=== PATIENT | female | born 1935 | race Caucasian/White ===

== ENCOUNTER 2017-02-04 12:51 | Inpatient (IN) | payer MEDICARE ==
[~2017-02-04] VITALS: Ht 165.1 cm; Wt 59.6 kg
[2017-02-04] MEDS ORDERED: LOTE5DRO2 EACHEYE (14:22)
[2017-02-04] MEDS ORDERED: LEVO137T3 PO (14:22)
[2017-02-04] MEDS ORDERED: BUPR300T4 PO (14:22)
[2017-02-04] MEDS ORDERED: METF500T PO (14:22)
[2017-02-04] MEDS ORDERED: CHOL10003 PO (14:22)
[2017-02-04] MEDS ORDERED: TRAZ50TA15 PO (14:22)
[2017-02-04] MEDS ORDERED: PANT40TA5 PO (14:22)
[2017-02-04] MEDS ORDERED: HALO2TAB PO (14:22)
[2017-02-04] MEDS ORDERED: OLME40TA12 PO (14:22)
[2017-02-04] MEDS ORDERED: DULO60CA6 PO (14:22)
[2017-02-04] MEDS ORDERED: ONDA4TAB10 PO (14:22)
[2017-02-04] MEDS ORDERED: ACETAMINOPHEN 325 MG TABLET PO PRN (18:15)
[2017-02-04] MEDS ORDERED: MAG HYDROX/AL HYDROX/SIMETH 30 ML ORAL.SUSP PO PRN (18:15)
[2017-02-04] MEDS ORDERED: MAGNESIUM HYDROXIDE 2,400 MG/30 ML ORAL.SUSP. PO PRN (18:15)
[2017-02-04] MEDS ORDERED: METHYL SALICYLATE/MENTHOL TOPICAL OINTMENT 29GM TUBE. TP PRN (18:15)
[2017-02-04 18:45] VITALS: BP 170/92
[2017-02-04] MEDS ORDERED: ONDANSETRON ODT 4 MG TAB.RAPDIS PO PRN (18:45)
--- NOTE | 2017-02-04 20:39 | PDOC ---
Exam Jt Demential Exam: Jt Note: Please also refer to the separate dictated note~for this date of service dictated separately.~Patient seen individually. Discussed the patient with Nursing staff reviewed the chart.~Reviewed interim history and current functioning. Reviewed vital signs,~Labs/ Radiology~and current medications noted below. Continue current treatment with the changes noted in the dictated addendum note Assessment: Vital Signs: Vital Signs Date Time Temp Pulse Resp B/P (MAP) Pulse Ox O2 Delivery O2 Flow Rate FiO2 02/04/17 18:45 97.1 117 22 170/92 (118) Room Air 96.0 Labs: Laboratory Tests Test 02/04/17 19:34 Glucose (Fingerstick) 199 mg/dL (70-99) H Current Medications: Meds: Current Medications Acetaminophen (Tylenol) 650 mg PRN Q6HRS PRN PO PAIN / TEMP; Start 02/04/17 at 18:15 Multi-Ingredient Ointment (Analgesic [place]) 1 camilo PRN QID PRN TP MUSCLE PAIN; Start 02/04/17 at 18:15 Al Hydroxide/Mg Hydroxide (Mylanta Plus Xs) 15 ml PRN AFTMEALHC PRN PO DYSPEPSIA; Start 02/04/17 at 18:15 Magnesium Hydroxide (Milk Of Magnesia) 2,400 mg PRN QHS PRN PO CONSTIPATION; Start 02/04/17 at 18:15 Bupropion HCl (Wellbutrin Xl) 300 mg DAILY PO ; Start 02/05/17 at 09:00 Vitamin D (Vitamin D3) 1,000 unit DAILY PO ; Start 02/05/17 at 09:00 Duloxetine HCl (Cymbalta) 60 mg DAILY PO ; Start 02/05/17 at 09:00 Haloperidol (Haldol) 1 mg PRN TID PRN PO ANXIETY / AGITATION; Start 02/04/17 at 18:45 Levothyroxine Sodium (Synthroid) 137 mcg DAILYAC PO ; Start 02/05/17 at 07:30 Loteprednol Etabonate (Lotemax) 1 drop DAILY OU ; Start 02/05/17 at 09:00 Metformin HCl (Glucophage) 500 mg DAILYWBKFT PO ; Start 02/05/17 at 08:00 Ondansetron HCl (Zofran Odt) 4 mg PRN Q4HRS PRN PO NAUSEA/VOMITING; Start 02/04 at 18:45 Pantoprazole Sodium (Protonix) 40 mg DAILY PO ; Start 02/05/17 at 09:00 Trazodone HCl (Desyrel) 25 mg HS PO ; Start 02/04/17 at 21:00 Losartan Potassium (Cozaar) 100 mg DAILY PO ; Start 02/05/17 at 09:00 Info (FLU VACCINE per PROTOCOL) 1 ea PRN 1X PRN MC PER PROTOCOL; Start at 19:00; Status UNV Pneumococcal Polyvalent Vaccine (Pneumovax 23) 0.5 ml ONCE ONCE VAX IM ; Start 02/05/17 at 09:00; Stop 02/05/17 at 09:01 Active Scripts Active Reported Zofran Odt (Ondansetron) 4 Mg Tab.rapdis 4 Mg PO PRN Q4HRS PRN Haloperidol 2 Mg Tablet 0.5 Tab PO PRN TID PRN Glucophage (Metformin Hcl) 500 Mg Tablet 500 Mg PO DAILY Trazodone Hcl 50 Mg Tablet 25 Mg PO HS Pantoprazole Sodium 40 Mg Tablet.dr 40 Mg PO DAILY Benicar (Olmesartan Medoxomil) 40 Mg Tablet 40 Mg PO DAILY Lotemax (Loteprednol Etabonate) 5 Ml Drops.susp 1 Drop EACHEYE DAILY Levothyroxine Sodium 137 Mcg Tablet 137 Mcg PO DAILYAC Cymbalta (Duloxetine Hcl) 60 Mg Capsule.dr 60 Mg PO DAILY Vitamin D3 (Cholecalciferol (Vitamin D3)) 1,000 Unit Tablet 1,000 Unit PO DAILY Bupropion Xl (Bupropion Hcl) 300 Mg Tab.er.24h 300 Mg PO DAILY VALERIA SHEPHERD MD Feb 04, 2017 20:39
[2017-02-04] MEDS: traZODone 50 MG TABLET. PO SCH (21:00)
[2017-02-05] MEDS: LEVOTHYROXINE 137 MCG TABLET PO SCH (06:02)
[2017-02-05 06:13] VITALS: BP 149/73
[2017-02-05] MEDS ORDERED: LEVOTHYROXINE 137 MCG TABLET PO SCH (07:30)
[2017-02-05] MEDS: PANTOPRAZOLE 40 MG TABLET. PO SCH (09:00)
[2017-02-05] MEDS: LOTEPREDNOL ETAB 0.5% OPHTH SUSPENSION 5ML BOTTLE. OU SCH (09:00)
[2017-02-05] MEDS ORDERED: FLU VACC QS2017-18 (36MOS+)/PF 0.5 ML SYRINGE. VAX IM ONE (09:00)
[2017-02-05] MEDS: CHOLECALCIFEROL (VITAMIN D3) 1,000 UNIT TABLET PO SCH (09:00)
[2017-02-05] MEDS ORDERED: PNEUMOC CONJ VACC 23-VALENT 0.5 ML VIAL. VAX IM ONE (09:00)
[2017-02-05] MEDS: HALOPERIDOL 1 MG TABLET PO PRN (10:11)
--- NOTE | 2017-02-05 10:22 | HP ---
ADMIT DATE: 02/04/2017 PSYCHIATRIC ADMISSION HISTORY AND EVALUATION This is a late entry for date of service 02/04/2017, covers elements not covered in my initial note of 02/04/2017. IDENTIFYING DATA: The patient is an 81-year-old female referred to us from [facility] where she presented from home with exacerbation of her diverticulitis, nausea, vomiting. While at [facility], she was found to be extremely paranoid, delusional, suspicious, refusing medications, refusing cares. Symptoms had been worsening at home for 2-3 weeks. It was felt that her physician at [facility] that she could not return home. She needed inpatient psychiatric stabilization for her confusion, psychosis and appropriate placement thus resulting in this referral. CHIEF COMPLAINT: "I just came here 20 minutes ago." This is accurate. I met with the patient shortly after she arrived in the unit, but other than that, she is quite confused, unaware of the year or where she is or the circumstances prompting admission. HISTORY OF PRESENT ILLNESS: Reportedly, the patient has been living alone at home by herself, has had increasing memory deficits, confusion, which she minimizes and worsening psychosis, paranoia. She has had sleep and appetite changes. No active suicidal or homicidal ideation. No clear history of bipolar disorder. UA was positive at [facility] on 01/31/2017. She was treated with IV Cipro, Flagyl additionally for diverticulitis. PAST PSYCHIATRIC HISTORY: Positive for progressive memory deficits, delusion, depression. PAST MEDICAL HISTORY: Diabetes mellitus, hypertension, hypothyroidism, history of CA breast on the left, history of bladder cancer, psoriasis, diverticulitis. CODE STATUS: Full. ALLERGIES: OXYCODONE, PERCOCET, PENICILLIN. ACCU-CHEKS: A.C. and at bedtime. DIET: Regular. Ambulates up with assistance. CURRENT PSYCHOTROPICS: Wellbutrin-XL 300 mg a day, Cymbalta 60 mg a day, trazodone 25 mg at bedtime. She received Haldol at [facility] for worsening psychosis. FAMILY HISTORY: Noncontributory. SOCIAL HISTORY: No alcohol, drug abuse, physical, sexual or elder abuse. She is not known to be a perpetrator. Her three daughters are her DPOA and per the [facility] paperwork, two of them have to concur, and all three have concurred for this hospitalization. MENTAL STATUS EXAM: The patient was seen individually in her room shortly after she was admitted. She is oriented to herself, situation, unaware of the year, where she was, reasons for admission. Speech is coherent, abstraction fair, computation impaired, language function intact. Short term memory is impaired. She is somewhat paranoid, suspicious, depressed. No active suicidal or homicidal ideation. Attention span short. Language function intact. LABORATORY DATA: Reviewed. REACTION TO HOSPITALIZATION: The patient accepting of this, has supportive family. IMPRESSION: Major neurocognitive disorder, Alzheimer, vascular with depression, delusion, behavioral disturbance; anxiety disorder, unspecified; impulse control disorder, unspecified. Rest of diagnoses as above. PLAN: Admit to the geropsychiatry unit at [facility]. I will see the patient daily individually from a psychiatric standpoint, medical followup per Dr. Alexis/Dr. Nava. Continue current psychotropics for now, observe baseline, then adjust as clinically indicated. I have carefully reviewed the drug interactions, risk-benefit ratio, favors no further change at this time. MAN Angelo SHEPHERD MD DR: MARSHALL/silvestre JOB#: [id number] / [id number]
[2017-02-05 11:36] LABS: THYROID STIM HORMONE (TSH) 2.991 uIU/mL (0.358-3.740)
[2017-02-05] MEDS: DULoxetine HCL 60 MG CAPSULE.DR PO SCH (12:21)
[2017-02-05] MEDS: metFORMIN 500 MG TABLET PO SCH (12:21)
[2017-02-05] MEDS: buPROPion XL 300 MG TAB.ER.24H. PO SCH (12:21)
[2017-02-05] MEDS: LOSARTAN 50 MG TABLET. PO SCH (12:32)
[2017-02-05 13:09] LABS: T3 TOTAL 58 ng/dL (71-180); THYROXINE 9.6 ug/dL (4.5-12.0)
[2017-02-05 15:49] VITALS: BP 143/76
[2017-02-05] MEDS ORDERED: Influenza vaccine per PROTOCOL. MC PRN (19:00)
[2017-02-05] MEDS: traZODone 50 MG TABLET. PO SCH (20:44)
--- NOTE | 2017-02-05 22:58 | PDOC ---
Exam Jt Demential Exam: Jt Note: Please also refer to the separate dictated note~for this date of service dictated separately.~Patient seen individually. Discussed the patient with Nursing staff reviewed the chart.~Reviewed interim history and current functioning. Reviewed vital signs,~Labs/ Radiology~and current medications noted below. Continue current treatment with the changes noted in the dictated addendum note Assessment: Vital Signs: Vital Signs Date Time Temp Pulse Resp B/P (MAP) Pulse Ox O2 Delivery O2 Flow Rate FiO2 02/05/17 15:49 97.5 80 18 143/76 (98) 95 02/04/17 18:45 Room Air 96.0 I&O Intake and Output 02/06/17 07:00 Intake Total 1080 ml Balance 1080 ml Intake Oral 1080 ml Labs: Laboratory Tests Test 02/05/17 07:18 02/05/17 11:28 02/05/17 16:36 02/05/17 19:17 Glucose (Fingerstick) 160 mg/dL (70-99) H 250 mg/dL (70-99) H 170 mg/dL (70-99) H 176 mg/dL (70-99) H Current Medications: Meds: Current Medications Acetaminophen (Tylenol) 650 mg PRN Q6HRS PRN PO PAIN / TEMP; Start 02/04/17 at 18:15 Multi-Ingredient Ointment (Analgesic [place]) 1 camilo PRN QID PRN TP MUSCLE PAIN; Start 02/04/17 at 18:15 Al Hydroxide/Mg Hydroxide (Mylanta Plus Xs) 15 ml PRN AFTMEALHC PRN PO DYSPEPSIA; Start 02/04/17 at 18:15 Magnesium Hydroxide (Milk Of Magnesia) 2,400 mg PRN QHS PRN PO CONSTIPATION; Start 02/04/17 at 18:15 Bupropion HCl (Wellbutrin Xl) 300 mg DAILY PO Last administered on 02/05/17 12 :21; Start 02/05/17 at 09:00 Vitamin D (Vitamin D3) 1,000 unit DAILY PO ; Start 02/05/17 at 09:00 Duloxetine HCl (Cymbalta) 60 mg DAILY PO Last administered on 02/05/17t 12:21; Start 02/05/17 at 09:00 Haloperidol (Haldol) 1 mg PRN TID PRN PO ANXIETY / AGITATION Last administered on 02/05/17 10:11; Start 02/04/17 at 18:45 Levothyroxine Sodium (Synthroid) 137 mcg DAILYAC PO ; Start 02/05/17 at 07:30; Stop 02/05/17 at 07:30; Status DC Loteprednol Etabonate (Lotemax) 1 drop DAILY OU ; Start 02/05/17 at 09:00 Metformin HCl (Glucophage) 500 mg DAILYWBKFT PO Last administered on 02/05/17 12:21; Start 02/05/17 at 08:00 Ondansetron HCl (Zofran Odt) 4 mg PRN Q4HRS PRN PO NAUSEA/VOMITING; Start 02/04 at 18:45 Pantoprazole Sodium (Protonix) 40 mg DAILY PO ; Start 02/05/17 at 09:00 Trazodone HCl (Desyrel) 25 mg HS PO Last administered on 02/05/17 20:44; Start 02/04/17 at 21:00 Losartan Potassium (Cozaar) 100 mg DAILY PO Last administered on 02/05/17 12: 32; Start 02/05/17 at 09:00 Info (FLU VACCINE per PROTOCOL) 1 ea PRN 1X PRN MC PER PROTOCOL; Start at 19:00; Status UNV Pneumococcal Polyvalent Vaccine (Pneumovax 23) 0.5 ml ONCE ONCE VAX IM Last administered on 02/05/17 15:36; Start 02/05/17 at 09:00; Stop 02/05/17 at 09:01 ; Status DC Influenza Virus Vaccine Quadrival (Fluarix Quad 7501-5510 Syringe) 0.5 ml ONCE ONCE VAX IM Last administered on 02/05/17 15:29; Start 02/05/17 at 09:00; Stop 02/05/17 at 09:01; Status DC Levothyroxine Sodium (Synthroid) 137 mcg DAILY07 PO Last administered on 06:02; Start 02/05/17 at 07:00 Active Scripts Active Reported Zofran Odt (Ondansetron) 4 Mg Tab.rapdis 4 Mg PO PRN Q4HRS PRN Haloperidol 2 Mg Tablet 0.5 Tab PO PRN TID PRN Glucophage (Metformin Hcl) 500 Mg Tablet 500 Mg PO DAILY Trazodone Hcl 50 Mg Tablet 25 Mg PO HS Pantoprazole Sodium 40 Mg Tablet.dr 40 Mg PO DAILY Benicar (Olmesartan Medoxomil) 40 Mg Tablet 40 Mg PO DAILY Lotemax (Loteprednol Etabonate) 5 Ml Drops.susp 1 Drop EACHEYE DAILY Levothyroxine Sodium 137 Mcg Tablet 137 Mcg PO DAILYAC Cymbalta (Duloxetine Hcl) 60 Mg Capsule.dr 60 Mg PO DAILY Vitamin D3 (Cholecalciferol (Vitamin D3)) 1,000 Unit Tablet 1,000 Unit PO DAILY Bupropion Xl (Bupropion Hcl) 300 Mg Tab.er.24h 300 Mg PO DAILY Diagnosis: Problems: (1) Anxiety disorder (2) Dementia, vascular, with delusions (3) Dementia, vascular, with depression (4) Dementia in Alzheimer's disease with depression (5) Dementia in Alzheimer's disease with delusions (6) Impulse control disorder VALERIA SHEPHERD MD Feb 05, 2017 22:58
[2017-02-06 02:06] LABS: HEMOGLOBIN A1C 6.5 % (4.8-5.6)
[2017-02-06 05:53] VITALS: BP 175/78
[2017-02-06] MEDS: LEVOTHYROXINE 137 MCG TABLET PO SCH (06:11)
[2017-02-06 08:13] LABS: BASO # 0.1 x10^3/uL (0.0-0.2); BASO % 1 % (0-3); EOS # 0.2 x10^3/uL (0.0-0.7); EOS % 2 % (0-3); HEMATOCRIT 30.4 % (36.0-47.0); HEMOGLOBIN 10.4 g/dL (12.0-15.5); LYMPH # 0.7 x10^3/uL (1.0-4.8); LYMPH % 8 % (24-48); MEAN CORPUSCULAR HEMOGLOBIN 31 pg (25-35); MEAN CORPUSCULAR HGB CONC 34 g/dL (31-37); MEAN CORPUSCULAR VOLUME 91 fL (79-100); MONO # 0.6 x10^3/uL (0.0-1.1); MONO % 6 % (0-9); NEUT # 7.3 x10^3uL (1.8-7.7); NEUT % 83 % (31-73); PLATELET COUNT 595 x10^3/uL (140-400); RED BLOOD COUNT 3.36 x10^6/uL (3.50-5.40); RED CELL DISTRIBUTION WIDTH 15.8 % (11.5-14.5); WHITE BLOOD COUNT 8.9 x10^3/uL (4.0-11.0)
[2017-02-06 08:26] LABS: ALBUMIN 3.7 g/dL (3.4-5.0); ALBUMIN/GLOBULIN RATIO 1.2 (1.0-1.7); CALCIUM 9.2 mg/dL (8.5-10.1); CREATININE 1.4 mg/dL (0.6-1.0); GFR 36.1; POTASSIUM 3.8 mmol/L (3.5-5.1); TOTAL BILIRUBIN 0.3 mg/dL (0.2-1.0); TOTAL PROTEIN 6.9 g/dL (6.4-8.2)
[2017-02-06] MEDS: metFORMIN 500 MG TABLET PO SCH (08:28)
[2017-02-06] MEDS: LOTEPREDNOL ETAB 0.5% OPHTH SUSPENSION 5ML BOTTLE. OU SCH (08:29)
[2017-02-06] MEDS: buPROPion XL 300 MG TAB.ER.24H. PO SCH (08:30)
[2017-02-06] MEDS: PANTOPRAZOLE 40 MG TABLET. PO SCH (08:30)
[2017-02-06] MEDS: DULoxetine HCL 60 MG CAPSULE.DR PO SCH (08:30)
[2017-02-06] MEDS: LOSARTAN 50 MG TABLET. PO SCH (08:30)
[2017-02-06] MEDS: CHOLECALCIFEROL (VITAMIN D3) 1,000 UNIT TABLET PO SCH (08:30)
--- NOTE | 2017-02-06 08:50 | CONS ---
DATE OF CONSULTATION: 02/05/2017 REASON FOR CONSULTATION: Medical management. HISTORY OF PRESENT ILLNESS: This is an 81-year-old female patient who was referred from [facility], where she was evaluated for increasing confusion, poor memory and inability to take care of herself at home and from there she was [facility] as she is psychotic, delusional, refusing medication, refusing care and on arrival last night she refused baseline EKG and she was exit seeking, wanting to leave and stated that she is being held captive here, took long time to convince her to allow the laboratory sample carrier to draw her labs and she is here basically for inpatient psychiatric stabilization. On questioning her, she stated that she used to live alone, takes care of herself. She is and she was here to play for volleyball. PAST MEDICAL HISTORY: Significant for hypertension, hypercholesterolemia, gastroesophageal reflux disease, type 2 diabetes as well as hypothyroidism. She is a former smoker. She was admitted with depression, encephalopathy, delusion, nausea, vomiting and hyponatremia. PAST SURGICAL HISTORY: Unremarkable. FAMILY HISTORY: Unremarkable and noncontributory. SOCIAL HISTORY: She is approximately 4 years ago. 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 She has 3 daughters. She stated that she has sisters who are also nurses. She is a former smoker, quit years ago. She does not drink alcohol or use any recreational drugs. REVIEW OF SYSTEMS: As per history of present illness. ALLERGIES: She is allergic to PENICILLIN and OXYCODONE. MEDICATIONS: She is currently on the following medications: She is on Wellbutrin 300 mg p.o. daily, cholecalciferol 1000 international units once a day, duloxetine 60 mg once a day, haloperidol 1 mg tablet 3 times a day, levothyroxine sodium 137 mcg once a day, Lotemax 1 drop to each eye daily for dry eye, metformin 500 mg p.o. daily, Benicar 40 mg once a day, ondansetron for Zofran oral disintegrating tablet 4 mg every 4 hours, Protonix 40 mg once a day and trazodone 25 mg at bedtime. PHYSICAL EXAMINATION: GENERAL: On examining her, she was sitting comfortably in her chair, in no apparent respiratory distress, slightly pale, but no jaundice, cyanosis, or thyromegaly. No jugular venous distention. No limb edema. VITAL SIGNS: Her heart rate was 100, blood pressure was 149/73, temperature was 97.4, respiratory rate was 18 and oxygen saturation was 100% on room air. HEAD, EYES, EARS, NOSE AND THROAT: Showed normocephalic, atraumatic. NECK: Supple. HEART: Showed normal first and second heart sounds with no gallop, rub or murmur. CHEST: Clear to auscultation. No crepitation or rhonchi. ABDOMEN: Distended, soft, nontender. NEUROLOGIC: She is awake, alert, but definitely confused. All her cranial nerves are intact. EXTREMITIES: She moves her extremities without difficulty. She ambulates with a walker. LABORATORY DATA: Showed that her serum iron was 59, TIBC was 262 and percent saturation was 23%. Her triglycerides were 47%, total cholesterol was 257, LDL cholesterol was 149, VLDL was 9, and HDL cholesterol was 99, the ratio was 2. Her TSH was 2.99, total T4 was 9.6, total T3 was 58. She did have lab work done at [facility], which showed that her white cell count was 6900, hemoglobin 10.6, hematocrit 33, MCV 92, and platelet count of 583,000. Her serum sodium was 132, potassium 3.8, chloride 90, bicarbonate 27, anion gap of 15, glucose 182. Her BUN is 11, creatinine 0.9, calcium was 9. Urinalysis was essentially unremarkable. Her AST, ALT, alkaline phosphatase were normal. The urine pH was 6.5, specific gravity 1.009, the urine was negative for blood, protein, nitrite and leukocyte esterase. There were 10-20 WBCs, 0-5 RBCs per high power field, negative for bacteria. IMPRESSION: In summary, this is an 81-year-old female patient who apparently used to live on her own and was admitted to [facility] with recurrent bouts of nausea, vomiting and abdominal discomfort. She was diagnosed with possible diverticulitis, mild hyponatremia, encephalopathy. Other medical problems include hypertension, type 2 diabetes, hypothyroidism, remote history of breast cancer. Past psychiatric history is significant for dementia and severe depression with anxiety disorder. She was in fact treated with ciprofloxacin and Flagyl while at [facility] and was evaluated there by the Neurology and psychiatric services and once stabilized, she was transferred [facility] for inpatient psychiatric stabilization. From a medical point of view, she seems to be grossly stable and all her vital signs are stable. Her lab work that was done at [facility], which showed that she has mild hyponatremia; however, all other lab works are within acceptable range. Her medications seems to be appropriate, although hyponatremia might be the result of her Wellbutrin, so I will order to repeat her lab work, to make sure that her serum sodium is not trending down further. I will follow all the other lab works that are still pending at the time of this dictation. Thank you, Dr. Holguin for allowing me to participate in the care of this patient. JASPER BATES MD DR: WILLIAM/silvestre JOB#: [id number] / [id number]
[2017-02-06] MEDS: QUEtiapine 25 MG TABLET. PO SCH (13:38)
--- NOTE | 2017-02-06 15:04 | EKG ---
[address] [address] Test Date: 2017-02-06 Test Time: 09:04:08 Pat Name: MICA MEAD Department: Room: [address] [place] [address] Gender: F Band Saw Operator: JUSTIN : 1935 Requested By: VALERIA SHEPHERD Order Number: [id number] Reading MD: Carlos Unger Measurements Intervals Isabela Rate: 102 P: 46 KS: 142 QRS: -21 QRSD: 90 T: 93 QT: 350 QTc: 461 Interpretive Statements SINUS TACHYCARDIA Electronically Signed On 02-07-2017 13:17:53 CDT by Carlos Unger
[2017-02-06 16:08] VITALS: BP 147/83
--- NOTE | 2017-02-06 20:02 | PDOC ---
Exam Jt Demential Exam: Jt Note: Please also refer to the separate dictated note~for this date of service dictated separately.~Patient seen individually. Discussed the patient with Nursing staff reviewed the chart.~Reviewed interim history and current functioning. Reviewed vital signs,~Labs/ Radiology~and current medications noted below. Continue current treatment with the changes noted in the dictated addendum note Assessment: Vital Signs: Vital Signs Date Time Temp Pulse Resp B/P (MAP) Pulse Ox O2 Delivery O2 Flow Rate FiO2 02/06/17 16:08 98.0 70 20 147/83 (104) 97 02/04/17 18:45 Room Air 96.0 I&O Intake and Output 02/07/17 07:00 Intake Total 1020 ml Balance 1020 ml Intake Oral 1020 ml Labs: Laboratory Tests Test 02/06/17 07:14 02/06/17 07:57 02/06/17 11:25 02/06/17 16:31 Glucose (Fingerstick) 171 mg/dL (70-99) H 186 mg/dL (70-99) H 155 mg/dL (70-99) H White Blood Count 8.9 x10^3/uL (4.0-11.0) Red Blood Count 3.36 x10^6/uL (3.50-5.40) L Hemoglobin 10.4 g/dL (12.0-15.5) L Hematocrit 30.4 % (36.0-47.0) L Mean Corpuscular Volume 91 fL (79-100) Mean Corpuscular Hemoglobin 31 pg (25-35) Mean Corpuscular Hemoglobin Concent 34 g/dL (31-37) Red Cell Distribution Width 15.8 % (11.5-14.5) H Platelet Count 595 x10^3/uL (140-400) H Neutrophils (%) (Auto) 83 % (31-73) H Lymphocytes (%) (Auto) 8 % (24-48) L Monocytes (%) (Auto) 6 % (0-9) Eosinophils (%) (Auto) 2 % (0-3) Basophils (%) (Auto) 1 % (0-3) Neutrophils # (Auto) 7.3 x10^3uL (1.8-7.7) Lymphocytes # (Auto) 0.7 x10^3/uL (1.0-4.8) L Monocytes # (Auto) 0.6 x10^3/uL (0.0-1.1) Eosinophils # (Auto) 0.2 x10^3/uL (0.0-0.7) Basophils # (Auto) 0.1 x10^3/uL (0.0-0.2) Sodium Level 134 mmol/L (136-145) L Potassium Level 3.8 mmol/L (3.5-5.1) Chloride Level 99 mmol/L (98-107) Carbon Dioxide Level 30 mmol/L (21-32) Anion Gap 5 (6-14) L Blood Urea Nitrogen 16 mg/dL (7-20) Creatinine 1.4 mg/dL (0.6-1.0) H Estimated GFR (Cockcroft-Gault) 36.1 BUN/Creatinine Ratio 11 (6-20) Glucose Level 172 mg/dL (70-99) H Calcium Level 9.2 mg/dL (8.5-10.1) Total Bilirubin 0.3 mg/dL (0.2-1.0) Aspartate Amino Transferase (AST) 28 U/L (15-37) Alanine Aminotransferase (ALT) 67 U/L (14-59) H Alkaline Phosphatase 93 U/L (46-116) VF-Wlj-N-Type Natriuretic Peptide 357 pg/mL (0-449) Total Protein 6.9 g/dL (6.4-8.2) Albumin 3.7 g/dL (3.4-5.0) Albumin/Globulin Ratio 1.2 (1.0-1.7) Test 02/06/17 19:25 Glucose (Fingerstick) 148 mg/dL (70-99) H Current Medications: Meds: Current Medications Acetaminophen (Tylenol) 650 mg PRN Q6HRS PRN PO PAIN / TEMP; Start 02/04/17 at 18:15 Multi-Ingredient Ointment (Analgesic [place]) 1 camilo PRN QID PRN TP MUSCLE PAIN; Start 02/04/17 at 18:15 Al Hydroxide/Mg Hydroxide (Mylanta Plus Xs) 15 ml PRN AFTMEALHC PRN PO DYSPEPSIA; Start 02/04/17 at 18:15 Magnesium Hydroxide (Milk Of Magnesia) 2,400 mg PRN QHS PRN PO CONSTIPATION; Start 02/04/17 at 18:15 Bupropion HCl (Wellbutrin Xl) 300 mg DAILY PO Last administered on 02/06/17 08 :30; Start 02/05/17 at 09:00 Vitamin D (Vitamin D3) 1,000 unit DAILY PO Last administered on 02/06/17 08:30 ; Start 02/05/17 at 09:00 Duloxetine HCl (Cymbalta) 60 mg DAILY PO Last administered on 02/06/17 08:30; Start 02/05/17 at 09:00 Haloperidol (Haldol) 1 mg PRN TID PRN PO ANXIETY / AGITATION Last administered on 02/05/17 10:11; Start 02/04/17 at 18:45 Levothyroxine Sodium (Synthroid) 137 mcg DAILYAC PO ; Start 02/05/17 at 07:30; Stop 02/05/17 at 07:30; Status DC Loteprednol Etabonate (Lotemax) 1 drop DAILY OU Last administered on 02/06/17 08:29; Start 02/05/17 at 09:00 Metformin HCl (Glucophage) 500 mg DAILYWBKFT PO Last administered on 02/06/17 08:28; Start 02/05/17 at 08:00; Stop 02/06/17 at 17:18; Status DC Ondansetron HCl (Zofran Odt) 4 mg PRN Q4HRS PRN PO NAUSEA/VOMITING; Start 02/04 at 18:45 Pantoprazole Sodium (Protonix) 40 mg DAILY PO Last administered on 02/06/17 08 :30; Start 02/05/17 at 09:00 Trazodone HCl (Desyrel) 25 mg HS PO Last administered on 02/05/17 20:44; Start 02/04/17 at 21:00 Losartan Potassium (Cozaar) 100 mg DAILY PO Last administered on 02/06/17 08: 30; Start 02/05/17 at 09:00 Info (FLU VACCINE per PROTOCOL) 1 ea PRN 1X PRN MC PER PROTOCOL; Start at 19:00; Status UNV Pneumococcal Polyvalent Vaccine (Pneumovax 23) 0.5 ml ONCE ONCE VAX IM Last administered on 02/05/17 15:36; Start 02/05/17 at 09:00; Stop 02/05/17 at 09:01 ; Status DC Influenza Virus Vaccine Quadrival (Fluarix Quad [id number] Syringe) 0.5 ml ONCE ONCE VAX IM Last administered on 02/05/17 15:29; Start 02/05/17 at 09:00; Stop 02/05/17 at 09:01; Status DC Levothyroxine Sodium (Synthroid) 137 mcg DAILY07 PO Last administered on 06:11; Start 02/05/17 at 07:00 Quetiapine Fumarate (SEROquel) 12.5 mg BID@0900,1300 PO Last administered on 13:38; Start 02/06/17 at 13:00 Non-Formulary Medication 1 ea DAILYWBKFT PO ; Start 02/07/17 at 08:00 Active Scripts Active Reported Zofran Odt (Ondansetron) 4 Mg Tab.rapdis 4 Mg PO PRN Q4HRS PRN Haloperidol 2 Mg Tablet 0.5 Tab PO PRN TID PRN Glucophage (Metformin Hcl) 500 Mg Tablet 500 Mg PO DAILY Trazodone Hcl 50 Mg Tablet 25 Mg PO HS Pantoprazole Sodium 40 Mg Tablet.dr 40 Mg PO DAILY Benicar (Olmesartan Medoxomil) 40 Mg Tablet 40 Mg PO DAILY Lotemax (Loteprednol Etabonate) 5 Ml Drops.susp 1 Drop EACHEYE DAILY Levothyroxine Sodium 137 Mcg Tablet 137 Mcg PO DAILYAC Cymbalta (Duloxetine Hcl) 60 Mg Capsule.dr 60 Mg PO DAILY Vitamin D3 (Cholecalciferol (Vitamin D3)) 1,000 Unit Tablet 1,000 Unit PO DAILY Bupropion Xl (Bupropion Hcl) 300 Mg Tab.er.24h 300 Mg PO DAILY Diagnosis: Problems: (1) Anxiety disorder (2) Impulse control disorder (3) Dementia, vascular, with depression (4) Dementia, vascular, with delusions (5) Dementia in Alzheimer's disease with depression (6) Dementia in Alzheimer's disease with delusions VALERIA SHEPHERD MD Feb 06, 2017 20:02
[2017-02-06] MEDS: traZODone 50 MG TABLET. PO SCH (20:32)
--- NOTE | 2017-02-07 01:33 | PN ---
DATE: 02/05/2017 This late entry 02/05/2017 covers elements not covered in my initial 02/05/2017. I met with the patient evening of 02/05/2017. Per nursing report, the patient refused to baseline EKG, somewhat exit seeking, wanting to leave and stated she has been held captive here. Took her 20 minutes from ___ to talk her about her ___ and the reason for this. REVIEW OF SYSTEMS: Ambulate up with assistance. No CV, , pulmonary, eye, ENT system symptoms on review. Reliability poor. MENTAL STATUS EXAM: Oriented to herself. Insight, judgment, recent and remote memory, attention, concentration, fund of knowledge poor, consistent with her diagnosis mentioned in my initial note. LABORATORY DATA: Reviewed. PLAN: Continue current psychotropics mentioned in my initial note; Wellbutrin XL 300 mg a day, Cymbalta 60 mg a day, trazodone 25 mg at bedtime. We will add low dose Seroquel 12.5 mg at 9 and 1 starting 02/06/2017 as a mood stabilizer and to augment the antidepressants. Adjust further as clinically indicated. Reviewed drug interactions, risk/benefit ratio favors no further change. VALERIA SHEPHERD MD DR: MARSHALL/silvestre JOB#: [id number] / [id number]
[2017-02-07] MEDS: LEVOTHYROXINE 137 MCG TABLET PO SCH (05:48)
[2017-02-07 06:23] VITALS: BP 155/66
--- NOTE | 2017-02-07 07:43 | RAD ---
Portable chest, 02/06/2017: History: Tachycardia The heart size and pulmonary vascularity are normal. There is calcific plaquing and tortuosity of the thoracic aorta. No pulmonary infiltrates are seen. There is no evidence of pleural fluid. Surgical clips are projected over the left axillary region. There is a moderate thoracolumbar scoliosis with associated degenerative change. IMPRESSION: 1. Aortic atherosclerosis. 2. No acute cardiopulmonary abnormality is detected.
[2017-02-07] MEDS: LOTEPREDNOL ETAB 0.5% OPHTH SUSPENSION 5ML BOTTLE. OU SCH (09:03)
[2017-02-07] MEDS: GLUCOPHAGE 500 MG PO SCH (09:03)
[2017-02-07] MEDS: LOSARTAN 50 MG TABLET. PO SCH (09:05)
[2017-02-07] MEDS: QUEtiapine 25 MG TABLET. PO SCH ×2 (09:06→13:20)
[2017-02-07] MEDS: DULoxetine HCL 60 MG CAPSULE.DR PO SCH (09:06)
[2017-02-07] MEDS: PANTOPRAZOLE 40 MG TABLET. PO SCH (09:06)
[2017-02-07] MEDS: buPROPion XL 300 MG TAB.ER.24H. PO SCH (09:08)
[2017-02-07] MEDS: CHOLECALCIFEROL (VITAMIN D3) 1,000 UNIT TABLET PO SCH (09:08)
[2017-02-07 16:23] VITALS: BP 174/83
[2017-02-07 17:05] VITALS: BP 175/73
[2017-02-07 17:30] VITALS: BP 149/96
[2017-02-07] MEDS: traZODone 50 MG TABLET. PO SCH (19:33)
--- NOTE | 2017-02-07 19:56 | PDOC ---
Exam Jt Demential Exam: Jt Note: Please also refer to the separate dictated note~for this date of service dictated separately.~Patient seen individually. Discussed the patient with Nursing staff reviewed the chart.~Reviewed interim history and current functioning. Reviewed vital signs,~Labs/ Radiology~and current medications noted below. Continue current treatment with the changes noted in the dictated addendum note Assessment: Vital Signs: Vital Signs Date Time Temp Pulse Resp B/P (MAP) Pulse Ox O2 Delivery O2 Flow Rate FiO2 02/07/17 17:30 97.0 96 18 149/96 (113) 99 02/04/17 18:45 Room Air 96.0 I&O Intake and Output 02/08/17 07:00 Intake Total 840 ml Balance 840 ml Intake Oral 840 ml Labs: Laboratory Tests Test 02/07/17 07:37 02/07/17 11:31 02/07/17 16:25 02/07/17 19:31 Glucose (Fingerstick) 165 mg/dL (70-99) H 153 mg/dL (70-99) H 153 mg/dL (70-99) H 154 mg/dL (70-99) H Current Medications: Meds: Current Medications Acetaminophen (Tylenol) 650 mg PRN Q6HRS PRN PO PAIN / TEMP; Start 02/04/17 at 18:15 Multi-Ingredient Ointment (Analgesic [place]) 1 camilo PRN QID PRN TP MUSCLE PAIN; Start 02/04/17 at 18:15 Al Hydroxide/Mg Hydroxide (Mylanta Plus Xs) 15 ml PRN AFTMEALHC PRN PO DYSPEPSIA; Start 02/04/17 at 18:15 Magnesium Hydroxide (Milk Of Magnesia) 2,400 mg PRN QHS PRN PO CONSTIPATION; Start 02/04/17 at 18:15 Bupropion HCl (Wellbutrin Xl) 300 mg DAILY PO Last administered on 02/07/17 09 :08; Start 02/05/17 at 09:00 Vitamin D (Vitamin D3) 1,000 unit DAILY PO Last administered on 02/07/17 09:08 ; Start 02/05/17 at 09:00 Duloxetine HCl (Cymbalta) 60 mg DAILY PO Last administered on 02/07/17 09:06; Start 02/05/17 at 09:00 Haloperidol (Haldol) 1 mg PRN TID PRN PO ANXIETY / AGITATION Last administered on 02/05/17 10:11; Start 02/04/17 at 18:45 Levothyroxine Sodium (Synthroid) 137 mcg DAILYAC PO ; Start 02/05/17 at 07:30; Stop 02/05/17 at 07:30; Status DC Loteprednol Etabonate (Lotemax) 1 drop DAILY OU Last administered on 02/07/17 09:03; Start 02/05/17 at 09:00 Metformin HCl (Glucophage) 500 mg DAILYWBKFT PO Last administered on 02/06/17 08:28; Start 02/05/17 at 08:00; Stop 02/06/17 at 17:18; Status DC Ondansetron HCl (Zofran Odt) 4 mg PRN Q4HRS PRN PO NAUSEA/VOMITING; Start 02/04 at 18:45 Pantoprazole Sodium (Protonix) 40 mg DAILY PO Last administered on 02/07/17 09 :06; Start 02/05/17 at 09:00 Trazodone HCl (Desyrel) 25 mg HS PO Last administered on 02/07/17 19:33; Start 02/04/17 at 21:00 Losartan Potassium (Cozaar) 100 mg DAILY PO Last administered on 02/07/17 09: 05; Start 02/05/17 at 09:00 Info (FLU VACCINE per PROTOCOL) 1 ea PRN 1X PRN MC PER PROTOCOL; Start at 19:00; Status UNV Pneumococcal Polyvalent Vaccine (Pneumovax 23) 0.5 ml ONCE ONCE VAX IM Last administered on 02/05/17 15:36; Start 02/05/17 at 09:00; Stop 02/05/17 at 09:01 ; Status DC Influenza Virus Vaccine Quadrival (Fluarix Quad 7192-8045 Syringe) 0.5 ml ONCE ONCE VAX IM Last administered on 02/05/17 15:29; Start 02/05/17 at 09:00; Stop 02/05/17 at 09:01; Status DC Levothyroxine Sodium (Synthroid) 137 mcg DAILY07 PO Last administered on 05:48; Start 02/05/17 at 07:00 Quetiapine Fumarate (SEROquel) 12.5 mg BID@0900,1300 PO Last administered on 13:20; Start 02/06/17 at 13:00; Stop 02/07/17 at 18:38; Status DC Non-Formulary Medication 1 ea DAILYWBKFT PO Last administered on 02/07/17 09: 03; Start 02/07/17 at 08:00 Quetiapine Fumarate (SEROquel) 12.5 mg DAILY PO ; Start 02/08/17 at 09:00 Active Scripts Active Reported Zofran Odt (Ondansetron) 4 Mg Tab.rapdis 4 Mg PO PRN Q4HRS PRN Haloperidol 2 Mg Tablet 0.5 Tab PO PRN TID PRN Glucophage (Metformin Hcl) 500 Mg Tablet 500 Mg PO DAILY Trazodone Hcl 50 Mg Tablet 25 Mg PO HS Pantoprazole Sodium 40 Mg Tablet.dr 40 Mg PO DAILY Benicar (Olmesartan Medoxomil) 40 Mg Tablet 40 Mg PO DAILY Lotemax (Loteprednol Etabonate) 5 Ml Drops.susp 1 Drop EACHEYE DAILY Levothyroxine Sodium 137 Mcg Tablet 137 Mcg PO DAILYAC Cymbalta (Duloxetine Hcl) 60 Mg Capsule.dr 60 Mg PO DAILY Vitamin D3 (Cholecalciferol (Vitamin D3)) 1,000 Unit Tablet 1,000 Unit PO DAILY Bupropion Xl (Bupropion Hcl) 300 Mg Tab.er.24h 300 Mg PO DAILY Diagnosis: Problems: (1) Anxiety disorder (2) Impulse control disorder (3) Dementia, vascular, with depression (4) Dementia, vascular, with delusions (5) Dementia in Alzheimer's disease with depression (6) Dementia in Alzheimer's disease with delusions VALERIA SHEPHERD MD Feb 07, 2017 19:56
[2017-02-08] MEDS: LEVOTHYROXINE 137 MCG TABLET PO SCH (04:52)
--- NOTE | 2017-02-08 05:58 | PN ---
DATE: 02/06/2017 PSYCHIATRIC PROGRESS NOTE This is a late entry for 02/06/2017, covers the elements not covered in my initial note of 02/06/2017. SUBJECTIVE: I met with the patient the evening of 02/06/2017 individually. Per nursing report, she has had a better day, been telling the nursing staff "I love you too." An EKG showed some tachycardia. Chest x-ray and BNP done per Dr. Nava, more calm and compliant. REVIEW OF SYSTEMS: No CV, , pulmonary, eye, ENT system symptoms on review. Ambulation is with a walker. Reliability poor. MENTAL STATUS EXAM: Oriented to herself. Insight, judgment, recent and remote memory, attention, concentration, fund of knowledge poor, consistent with her diagnosis mentioned in my initial note. PLAN: Continue current psychotropics mentioned in my initial note. Reviewed drug interactions. Risk/benefit ratio favors no further change at this time. VALERIA SHEPHERD MD DR: MARSHALL/silvestre JOB#: [id number] / [id number]
[2017-02-08 06:04] VITALS: BP 149/88
[2017-02-08] MEDS: GLUCOPHAGE 500 MG PO SCH (08:00)
[2017-02-08] MEDS: LOTEPREDNOL ETAB 0.5% OPHTH SUSPENSION 5ML BOTTLE. OU SCH (08:52)
[2017-02-08] MEDS: CHOLECALCIFEROL (VITAMIN D3) 1,000 UNIT TABLET PO SCH (08:52)
[2017-02-08] MEDS: buPROPion XL 300 MG TAB.ER.24H. PO SCH (08:52)
[2017-02-08] MEDS: DULoxetine HCL 60 MG CAPSULE.DR PO SCH (08:52)
[2017-02-08] MEDS: LOSARTAN 50 MG TABLET. PO SCH (08:52)
[2017-02-08] MEDS: PANTOPRAZOLE 40 MG TABLET. PO SCH (08:52)
[2017-02-08] MEDS: QUEtiapine 25 MG TABLET. PO SCH (08:55)
[2017-02-08 15:53] VITALS: BP 155/90
--- NOTE | 2017-02-08 18:44 | EKG ---
[address] [address] Test Date: 2017-02-08 Test Time: 18:06:55 Pat Name: MICA MEAD Department: Room: [address] [place] [address] Gender: F Environmental Officer: : 1935 Requested By: YASEMIN CONDE Order Number: [id number] Reading MD: Bk Hurst Measurements Intervals [place] Rate: 101 P: -5 MS: 148 QRS: -17 QRSD: 88 T: 40 QT: 344 QTc: 447 Interpretive Statements SINUS TACHYCARDIA LEFT ATRIAL ABNORMALITY LEFTWARD AXIS R-S TRANSITION ZONE IN V LEADS DISPLACED TO THE LEFT ABNORMAL ECG RI6.01 Compared to ECG 02/06/2017 09:04:08 Atrial abnormality now present Left-axis deviation now present Electronically Signed On 02-25-2017 12:01:11 CDT by Bk Hurst
--- NOTE | 2017-02-08 19:53 | PDOC ---
Exam Jt Demential Exam: Jt Note: Please also refer to the separate dictated note~for this date of service dictated separately.~Patient seen individually. Discussed the patient with Nursing staff reviewed the chart.~Reviewed interim history and current functioning. Reviewed vital signs,~Labs/ Radiology~and current medications noted below. Continue current treatment with the changes noted in the dictated addendum note Assessment: Vital Signs: Vital Signs Date Time Temp Pulse Resp B/P (MAP) Pulse Ox O2 Delivery O2 Flow Rate FiO2 02/08/17 15:53 97.7 86 20 155/90 (111) 96 02/04/17 18:45 Room Air 96.0 I&O Intake and Output 02/09/17 07:00 Intake Total 960 ml Balance 960 ml Intake Oral 960 ml Labs: Laboratory Tests Test 02/08/17 07:19 02/08/17 11:32 02/08/17 16:17 02/08/17 19:21 Glucose (Fingerstick) 171 mg/dL (70-99) H 197 mg/dL (70-99) H 155 mg/dL (70-99) H 209 mg/dL (70-99) H Current Medications: Meds: Current Medications Acetaminophen (Tylenol) 650 mg PRN Q6HRS PRN PO PAIN / TEMP; Start 02/04/17 at 18:15 Multi-Ingredient Ointment (Analgesic [place]) 1 camilo PRN QID PRN TP MUSCLE PAIN; Start 02/04/17 at 18:15 Al Hydroxide/Mg Hydroxide (Mylanta Plus Xs) 15 ml PRN AFTMEALHC PRN PO DYSPEPSIA; Start 02/04/17 at 18:15 Magnesium Hydroxide (Milk Of Magnesia) 2,400 mg PRN QHS PRN PO CONSTIPATION; Start 02/04/17 at 18:15 Bupropion HCl (Wellbutrin Xl) 300 mg DAILY PO Last administered on 02/08/17 08 :52; Start 02/05/17 at 09:00 Vitamin D (Vitamin D3) 1,000 unit DAILY PO Last administered on 02/08/17 08:52 ; Start 02/05/17 at 09:00 Duloxetine HCl (Cymbalta) 60 mg DAILY PO Last administered on 02/08/17 08:52; Start 02/05/17 at 09:00 Haloperidol (Haldol) 1 mg PRN TID PRN PO ANXIETY / AGITATION Last administered on 02/05/17 10:11; Start 02/04/17 at 18:45 Levothyroxine Sodium (Synthroid) 137 mcg DAILYAC PO ; Start 02/05/17 at 07:30; Stop 02/05/17 at 07:30; Status DC Loteprednol Etabonate (Lotemax) 1 drop DAILY OU Last administered on 02/08/17 08:52; Start 02/05/17 at 09:00 Metformin HCl (Glucophage) 500 mg DAILYWBKFT PO Last administered on 02/06/17 08:28; Start 02/05/17 at 08:00; Stop 02/06/17 at 17:18; Status DC Ondansetron HCl (Zofran Odt) 4 mg PRN Q4HRS PRN PO NAUSEA/VOMITING; Start 02/04 at 18:45 Pantoprazole Sodium (Protonix) 40 mg DAILY PO Last administered on 02/08/17 08 :52; Start 02/05/17 at 09:00 Trazodone HCl (Desyrel) 25 mg HS PO Last administered on 02/07/17 19:33; Start 02/04/17 at 21:00 Losartan Potassium (Cozaar) 100 mg DAILY PO Last administered on 02/08/17 08: 52; Start 02/05/17 at 09:00 Info (FLU VACCINE per PROTOCOL) 1 ea PRN 1X PRN MC PER PROTOCOL; Start at 19:00; Status UNV Pneumococcal Polyvalent Vaccine (Pneumovax 23) 0.5 ml ONCE ONCE VAX IM Last administered on 02/05/17 15:36; Start 02/05/17 at 09:00; Stop 02/05/17 at 09:01 ; Status DC Influenza Virus Vaccine Quadrival (Fluarix Quad [id number] Syringe) 0.5 ml ONCE ONCE VAX IM Last administered on 02/05/17 15:29; Start 02/05/17 at 09:00; Stop 02/05/17 at 09:01; Status DC Levothyroxine Sodium (Synthroid) 137 mcg DAILY07 PO Last administered on 04:52; Start 02/05/17 at 07:00 Quetiapine Fumarate (SEROquel) 12.5 mg BID@0900,1300 PO Last administered on 13:20; Start 02/06/17 at 13:00; Stop 02/07/17 at 18:38; Status DC Non-Formulary Medication 1 ea DAILYWBKFT PO Last administered on 02/08/17 08: 00; Start 02/07/17 at 08:00 Quetiapine Fumarate (SEROquel) 12.5 mg DAILY PO Last administered on 02/08/17 08:55; Start 02/08/17 at 09:00 Active Scripts Active Reported Zofran Odt (Ondansetron) 4 Mg Tab.rapdis 4 Mg PO PRN Q4HRS PRN Haloperidol 2 Mg Tablet 0.5 Tab PO PRN TID PRN Glucophage (Metformin Hcl) 500 Mg Tablet 500 Mg PO DAILY Trazodone Hcl 50 Mg Tablet 25 Mg PO HS Pantoprazole Sodium 40 Mg Tablet.dr 40 Mg PO DAILY Benicar (Olmesartan Medoxomil) 40 Mg Tablet 40 Mg PO DAILY Lotemax (Loteprednol Etabonate) 5 Ml Drops.susp 1 Drop EACHEYE DAILY Levothyroxine Sodium 137 Mcg Tablet 137 Mcg PO DAILYAC Cymbalta (Duloxetine Hcl) 60 Mg Capsule.dr 60 Mg PO DAILY Vitamin D3 (Cholecalciferol (Vitamin D3)) 1,000 Unit Tablet 1,000 Unit PO DAILY Bupropion Xl (Bupropion Hcl) 300 Mg Tab.er.24h 300 Mg PO DAILY Diagnosis: Problems: (1) Anxiety disorder (2) Impulse control disorder (3) Dementia, vascular, with depression (4) Dementia, vascular, with delusions (5) Dementia in Alzheimer's disease with depression (6) Dementia in Alzheimer's disease with delusions VALERIA SHEPHERD MD Feb 08, 2017 19:53
[2017-02-08] MEDS: traZODone 50 MG TABLET. PO SCH (19:58)
[2017-02-09] MEDS: LEVOTHYROXINE 137 MCG TABLET PO SCH (05:00)
--- NOTE | 2017-02-09 05:33 | PN ---
DATE: 02/07/2017 This late entry for 02/07/2017 covers elements not covered in my initial note of 02/07/2017. SUBJECTIVE: I met with the patient in the evening of 02/07/2017. Nursing staff report that the patient's 3 daughters are her DPOAs and all have been calling individually to get updated on the patient and the daughter from [place] reportedly per nursing report has been somewhat abrasive, but the other daughters are very supportive. The patient slid from her walker. No injuries were noted. REVIEW OF SYSTEMS: Ambulation impaired. No CV, , pulmonary, eye, ENT system symptoms on review. MENTAL STATUS EXAM: Oriented to herself. Insight, judgment, recent and remote memory, attention, concentration, fund of knowledge poor, consistent with her diagnosis mentioned in my initial note. PLAN: Reduce the Seroquel from 12.5 b.i.d. to 12.5 mg once a day. Maintain trazodone, Cymbalta, Wellbutrin at current dosage. Reviewed drug interactions. Risk/benefit ratio favors no further change. VALERIA SHEPHERD MD DR: MARSHALL/silvestre JOB#: [id number] / [id number]
[2017-02-09 05:50] VITALS: BP 133/79
[2017-02-09] MEDS: PANTOPRAZOLE 40 MG TABLET. PO SCH (09:12)
[2017-02-09] MEDS: CHOLECALCIFEROL (VITAMIN D3) 1,000 UNIT TABLET PO SCH (09:13)
[2017-02-09] MEDS: LOSARTAN 50 MG TABLET. PO SCH (09:13)
[2017-02-09] MEDS: QUEtiapine 25 MG TABLET. PO SCH (09:13)
[2017-02-09] MEDS: DULoxetine HCL 60 MG CAPSULE.DR PO SCH (09:13)
[2017-02-09] MEDS: buPROPion XL 300 MG TAB.ER.24H. PO SCH (09:13)
[2017-02-09] MEDS: LOTEPREDNOL ETAB 0.5% OPHTH SUSPENSION 5ML BOTTLE. OU SCH (09:15)
[2017-02-09] MEDS: GLUCOPHAGE 500 MG PO SCH (09:15)
[2017-02-09 16:56] VITALS: BP 132/78
[2017-02-09] MEDS: traZODone 50 MG TABLET. PO SCH (19:19)
--- NOTE | 2017-02-09 21:21 | PDOC ---
Exam Jt Demential Exam: Jt Note: Please also refer to the separate dictated note~for this date of service dictated separately.~Patient seen individually. Discussed the patient with Nursing staff reviewed the chart.~Reviewed interim history and current functioning. Reviewed vital signs,~Labs/ Radiology~and current medications noted below. Continue current treatment with the changes noted in the dictated addendum note Assessment: Vital Signs: Vital Signs Date Time Temp Pulse Resp B/P (MAP) Pulse Ox O2 Delivery O2 Flow Rate FiO2 02/09/17 16:56 97.8 57 16 132/78 (96) 97 02/09/17 05:50 Room Air 02/04/17 18:45 96.0 I&O Intake and Output 02/10/17 07:00 Intake Total 720 ml Balance 720 ml Intake Oral 720 ml Labs: Laboratory Tests Test 02/09/17 07:16 02/09/17 11:32 02/09/17 16:47 02/09/17 18:53 Glucose (Fingerstick) 142 mg/dL (70-99) H 187 mg/dL (70-99) H 119 mg/dL (70-99) H 148 mg/dL (70-99) H Current Medications: Meds: Current Medications Acetaminophen (Tylenol) 650 mg PRN Q6HRS PRN PO PAIN / TEMP; Start 02/04/17 at 18:15 Multi-Ingredient Ointment (Analgesic [place]) 1 camilo PRN QID PRN TP MUSCLE PAIN; Start 02/04/17 at 18:15 Al Hydroxide/Mg Hydroxide (Mylanta Plus Xs) 15 ml PRN AFTMEALHC PRN PO DYSPEPSIA; Start 02/04/17 at 18:15 Magnesium Hydroxide (Milk Of Magnesia) 2,400 mg PRN QHS PRN PO CONSTIPATION; Start 02/04/17 at 18:15 Bupropion HCl (Wellbutrin Xl) 300 mg DAILY PO Last administered on 02/09/17 09 :13; Start 02/05/17 at 09:00 Vitamin D (Vitamin D3) 1,000 unit DAILY PO Last administered on 02/09/17 09:13 ; Start 02/05/17 at 09:00 Duloxetine HCl (Cymbalta) 60 mg DAILY PO Last administered on 02/09/17 09:13; Start 02/05/17 at 09:00 Haloperidol (Haldol) 1 mg PRN TID PRN PO ANXIETY / AGITATION Last administered on 02/05/17 10:11; Start 02/04/17 at 18:45 Levothyroxine Sodium (Synthroid) 137 mcg DAILYAC PO ; Start 02/05/17 at 07:30; Stop 02/05/17 at 07:30; Status DC Loteprednol Etabonate (Lotemax) 1 drop DAILY OU Last administered on 02/09/17 09:15; Start 02/05/17 at 09:00 Metformin HCl (Glucophage) 500 mg DAILYWBKFT PO Last administered on 02/06/17 08:28; Start 02/05/17 at 08:00; Stop 02/06/17 at 17:18; Status DC Ondansetron HCl (Zofran Odt) 4 mg PRN Q4HRS PRN PO NAUSEA/VOMITING; Start 02/04 at 18:45 Pantoprazole Sodium (Protonix) 40 mg DAILY PO Last administered on 02/09/17 09 :12; Start 02/05/17 at 09:00 Trazodone HCl (Desyrel) 25 mg HS PO Last administered on 02/09/17 19:19; Start 02/04/17 at 21:00 Losartan Potassium (Cozaar) 100 mg DAILY PO Last administered on 02/09/17 09: 13; Start 02/05/17 at 09:00 Info (FLU VACCINE per PROTOCOL) 1 ea PRN 1X PRN MC PER PROTOCOL; Start at 19:00; Status UNV Pneumococcal Polyvalent Vaccine (Pneumovax 23) 0.5 ml ONCE ONCE VAX IM Last administered on 02/05/17 15:36; Start 02/05/17 at 09:00; Stop 02/05/17 at 09:01 ; Status DC Influenza Virus Vaccine Quadrival (Fluarix Quad [id number] Syringe) 0.5 ml ONCE ONCE VAX IM Last administered on 02/05/17 15:29; Start 02/05/17 at 09:00; Stop 02/05/17 at 09:01; Status DC Levothyroxine Sodium (Synthroid) 137 mcg DAILY07 PO Last administered on 05:00; Start 9/16/17 at 07:00 Quetiapine Fumarate (SEROquel) 12.5 mg BID@0900,1300 PO Last administered on 13:20; Start 02/06/17 at 13:00; Stop 02/07/17 at 18:38; Status DC Non-Formulary Medication 1 ea DAILYWBKFT PO Last administered on 02/09/17 09: 15; Start 02/07/17 at 08:00 Quetiapine Fumarate (SEROquel) 12.5 mg DAILY PO Last administered on 02/09/17 09:13; Start 02/08/17 at 09:00 Active Scripts Active Reported Zofran Odt (Ondansetron) 4 Mg Tab.rapdis 4 Mg PO PRN Q4HRS PRN Haloperidol 2 Mg Tablet 0.5 Tab PO PRN TID PRN Glucophage (Metformin Hcl) 500 Mg Tablet 500 Mg PO DAILY Trazodone Hcl 50 Mg Tablet 25 Mg PO HS Pantoprazole Sodium 40 Mg Tablet.dr 40 Mg PO DAILY Benicar (Olmesartan Medoxomil) 40 Mg Tablet 40 Mg PO DAILY Lotemax (Loteprednol Etabonate) 5 Ml Drops.susp 1 Drop EACHEYE DAILY Levothyroxine Sodium 137 Mcg Tablet 137 Mcg PO DAILYAC Cymbalta (Duloxetine Hcl) 60 Mg Capsule.dr 60 Mg PO DAILY Vitamin D3 (Cholecalciferol (Vitamin D3)) 1,000 Unit Tablet 1,000 Unit PO DAILY Bupropion Xl (Bupropion Hcl) 300 Mg Tab.er.24h 300 Mg PO DAILY Diagnosis: Problems: (1) Anxiety disorder (2) Impulse control disorder (3) Dementia, vascular, with depression (4) Dementia, vascular, with delusions (5) Dementia in Alzheimer's disease with depression (6) Dementia in Alzheimer's disease with delusions VALERIA SHEPHERD MD Feb 09, 2017 21:21
--- NOTE | 2017-02-10 05:42 | PN ---
DATE: 02/08/2017 PSYCHIATRIC PROGRESS NOTE This is a late entry for 02/08/2017 and covers the elements not covered in my initial note of 02/08/2017. SUBJECTIVE: I met with the patient in the evening of 02/08/2017. Per nursing report, the patient is alert, oriented to herself and date of , felt the year was 1998, and [facility] She is sarcastic at times, per nursing report, but otherwise more redirectable, less delusional. REVIEW OF SYSTEMS: Ambulation impaired, in a wheelchair. No CV, , pulmonary, eye, ENT system symptoms on review. MENTAL STATUS EXAM: Oriented to herself and situation. Speech often responses monosyllabic, coherent, abstraction fair, computation impaired, language function intact, short term memory is impaired. Mood and affect despite the above is improved. IMPRESSION: Unchanged from initial note. PLAN: Continue current psychotropics. Reviewed drug interactions. Risk/benefit ratio favors no further change. VALERIA SHEPHERD MD DR: MARSHALL/silvestre JOB#: [id number] / [id number]
[2017-02-10] MEDS: LEVOTHYROXINE 137 MCG TABLET PO SCH (05:43)
[2017-02-10 06:06] VITALS: BP 163/70
[2017-02-10] MEDS: QUEtiapine 25 MG TABLET. PO SCH (08:33)
[2017-02-10] MEDS: PANTOPRAZOLE 40 MG TABLET. PO SCH (08:34)
[2017-02-10] MEDS: LOSARTAN 50 MG TABLET. PO SCH (08:34)
[2017-02-10] MEDS: CHOLECALCIFEROL (VITAMIN D3) 1,000 UNIT TABLET PO SCH (08:34)
[2017-02-10] MEDS: buPROPion XL 300 MG TAB.ER.24H. PO SCH (08:34)
[2017-02-10] MEDS: DULoxetine HCL 60 MG CAPSULE.DR PO SCH (08:34)
[2017-02-10] MEDS: LOTEPREDNOL ETAB 0.5% OPHTH SUSPENSION 5ML BOTTLE. OU SCH (08:35)
[2017-02-10] MEDS: GLUCOPHAGE 500 MG PO SCH (08:35)
--- NOTE | 2017-02-10 10:08 | RAD ---
CT of the head without contrast, 02/10/2017: History: Previous concussion No previous studies are available at this time for comparison purposes. There is moderate cerebral atrophy. The ventricles are enlarged on a compensatory basis. There is no shift of the midline structures. There is no evidence of acute intracranial hemorrhage or mass effect. There are mild bilateral deep white matter lucencies compatible with chronic ischemic change. IMPRESSION: 1. Cerebral atrophy. 2. Mild bilateral deep white matter lucencies compatible with chronic ischemic change. 3. No acute intracranial abnormality is detected. PQRS Compliance Statement: One or more of the following individualized dose reduction techniques were utilized for this examination: 1. Automated exposure control 2. Adjustment of the mA and/or kV according to patient size 3. Use of iterative reconstruction technique
[2017-02-10] MEDS: RIVASTIGMINE 4.6MG PATCH. TD SCH (12:10)
[2017-02-10 16:35] VITALS: BP 155/78
[2017-02-10] MEDS: traZODone 50 MG TABLET. PO SCH (19:52)
--- NOTE | 2017-02-10 21:16 | PDOC ---
Exam Jt Demential Exam: Jt Note: Please also refer to the separate dictated note~for this date of service dictated separately.~Patient seen individually. Discussed the patient with Nursing staff reviewed the chart.~Reviewed interim history and current functioning. Reviewed vital signs,~Labs/ Radiology~and current medications noted below. Continue current treatment with the changes noted in the dictated addendum note Assessment: Vital Signs: Vital Signs Date Time Temp Pulse Resp B/P (MAP) Pulse Ox O2 Delivery O2 Flow Rate FiO2 02/10/17 16:35 98.4 93 18 155/78 (103) 98 02/09/17 05:50 Room Air 02/04/17 18:45 96.0 I&O Intake and Output 02/11/17 07:00 Intake Total 600 ml Balance 600 ml Intake Oral 600 ml Labs: Laboratory Tests Test 02/10/17 07:45 02/10/17 11:31 02/10/17 16:44 02/10/17 18:56 Glucose (Fingerstick) 145 mg/dL (70-99) H 232 mg/dL (70-99) H 122 mg/dL (70-99) H 180 mg/dL (70-99) H Current Medications: Meds: Current Medications Acetaminophen (Tylenol) 650 mg PRN Q6HRS PRN PO PAIN / TEMP; Start 02/04/17 at 18:15 Multi-Ingredient Ointment (Analgesic [place]) 1 camilo PRN QID PRN TP MUSCLE PAIN; Start 02/04/17 at 18:15 Al Hydroxide/Mg Hydroxide (Mylanta Plus Xs) 15 ml PRN AFTMEALHC PRN PO DYSPEPSIA; Start 02/04/17 at 18:15 Magnesium Hydroxide (Milk Of Magnesia) 2,400 mg PRN QHS PRN PO CONSTIPATION; Start 02/04/17 at 18:15 Bupropion HCl (Wellbutrin Xl) 300 mg DAILY PO Last administered on 02/10/17 08 :34; Start 02/05/17 at 09:00; Stop 02/10/17 at 09:56; Status DC Vitamin D (Vitamin D3) 1,000 unit DAILY PO Last administered on 02/10/17 08:34 ; Start 02/05/17 at 09:00 Duloxetine HCl (Cymbalta) 60 mg DAILY PO Last administered on 02/10/17 08:34; Start 02/05/17 at 09:00 Haloperidol (Haldol) 1 mg PRN TID PRN PO ANXIETY / AGITATION Last administered on 02/05/17 10:11; Start 02/04/17 at 18:45 Levothyroxine Sodium (Synthroid) 137 mcg DAILYAC PO ; Start 02/05/17 at 07:30; Stop 02/05/17 at 07:30; Status DC Loteprednol Etabonate (Lotemax) 1 drop DAILY OU Last administered on 02/10/17 08:35; Start 02/05/17 at 09:00 Metformin HCl (Glucophage) 500 mg DAILYWBKFT PO Last administered on 02/06/17 08:28; Start 02/05/17 at 08:00; Stop 02/06/17 at 17:18; Status DC Ondansetron HCl (Zofran Odt) 4 mg PRN Q4HRS PRN PO NAUSEA/VOMITING; Start 02/04 at 18:45 Pantoprazole Sodium (Protonix) 40 mg DAILY PO Last administered on 02/10/17 08 :34; Start 02/05/17 at 09:00 Trazodone HCl (Desyrel) 25 mg HS PO Last administered on 02/10/17 19:52; Start 02/04/17 at 21:00 Losartan Potassium (Cozaar) 100 mg DAILY PO Last administered on 02/10/17 08: 34; Start 02/05/17 at 09:00 Info (FLU VACCINE per PROTOCOL) 1 ea PRN 1X PRN MC PER PROTOCOL; Start at 19:00; Status UNV Pneumococcal Polyvalent Vaccine (Pneumovax 23) 0.5 ml ONCE ONCE VAX IM Last administered on 02/05/17 15:36; Start 02/05/17 at 09:00; Stop 02/05/17 at 09:01 ; Status DC Influenza Virus Vaccine Quadrival (Fluarix Quad [id number] Syringe) 0.5 ml ONCE ONCE VAX IM Last administered on 02/05/17 15:29; Start 02/05/17 at 09:00; Stop 02/05/17 at 09:01; Status DC Levothyroxine Sodium (Synthroid) 137 mcg DAILY07 PO Last administered on 05:43; Start 02/05/17 at 07:00 Quetiapine Fumarate (SEROquel) 12.5 mg BID@0900,1300 PO Last administered on 13:20; Start 02/06/17 at 13:00; Stop 02/07/17 at 18:38; Status DC Non-Formulary Medication 1 ea DAILYWBKFT PO Last administered on 02/10/17 08: 35; Start 02/07/17 at 08:00 Quetiapine Fumarate (SEROquel) 12.5 mg DAILY PO Last administered on 02/10/17 08:33; Start 02/08/17 at 09:00 Rivastigmine (Exelon) 1 patch DAILY TD ; Start 02/11/17 at 09:00; Stop 02/11/17 at 09:00; Status DC Rivastigmine (Exelon) 1 patch DAILY TD Last administered on 02/10/17 12:10; Start 02/10/17 at 10:00 Active Scripts Active Reported Zofran Odt (Ondansetron) 4 Mg Tab.rapdis 4 Mg PO PRN Q4HRS PRN Haloperidol 2 Mg Tablet 0.5 Tab PO PRN TID PRN Glucophage (Metformin Hcl) 500 Mg Tablet 500 Mg PO DAILY Trazodone Hcl 50 Mg Tablet 25 Mg PO HS Pantoprazole Sodium 40 Mg Tablet.dr 40 Mg PO DAILY Benicar (Olmesartan Medoxomil) 40 Mg Tablet 40 Mg PO DAILY Lotemax (Loteprednol Etabonate) 5 Ml Drops.susp 1 Drop EACHEYE DAILY Levothyroxine Sodium 137 Mcg Tablet 137 Mcg PO DAILYAC Cymbalta (Duloxetine Hcl) 60 Mg Capsule.dr 60 Mg PO DAILY Vitamin D3 (Cholecalciferol (Vitamin D3)) 1,000 Unit Tablet 1,000 Unit PO DAILY Bupropion Xl (Bupropion Hcl) 300 Mg Tab.er.24h 300 Mg PO DAILY Diagnosis: Problems: (1) Anxiety disorder (2) Impulse control disorder (3) Dementia, vascular, with depression (4) Dementia, vascular, with delusions (5) Dementia in Alzheimer's disease with depression (6) Dementia in Alzheimer's disease with delusions VALERIA SHEPHERD MD Feb 10, 2017 21:16
--- NOTE | 2017-02-11 03:33 | PN ---
DATE: 02/09/2017 This late entry for date of service 02/09/2017 covers elements not covered in my initial note of 02/09/2017. SUBJECTIVE: I met with the patient the evening of 02/09/2017. The patient is compliant with her medications, but upset with staff, during showers took 3 staff members to assist, but later did well. REVIEW OF SYSTEMS: Ambulation impaired, with walker. No CV, , pulmonary, eye, ENT system symptoms on review. MENTAL STATUS EXAMINATION: Oriented to herself and situation. Speech is coherent, abstraction fair, computation impaired, language function intact, attention span short. Mood and affect somewhat less anxious, labile. LABORATORY DATA: Reviewed. IMPRESSION: Unchanged from initial note. PLAN: Continue current psychotropics, may consider stopping Wellbutrin in case is worsening her agitation; maintain Cymbalta, trazodone, Seroquel is once a day 12.5 mg. Majority of her major neurocognitive disorders probably vascular but she has been on Aricept in the past and we may consider starting her on Exelon patch since there is a possibility of Alzheimer disease in her sister. Reviewed drug interactions, risk/benefit ratio favors no further change at this time. VALERIA SHEPHERD MD DR: MARSHALL/silvestre JOB#: [id number] / [id number]
[2017-02-11] MEDS: LEVOTHYROXINE 137 MCG TABLET PO SCH (05:30)
[2017-02-11 06:10] VITALS: BP 149/149
[2017-02-11] MEDS: PANTOPRAZOLE 40 MG TABLET. PO SCH (08:28)
[2017-02-11] MEDS: DULoxetine HCL 60 MG CAPSULE.DR PO SCH (08:29)
[2017-02-11] MEDS: QUEtiapine 25 MG TABLET. PO SCH (08:29)
[2017-02-11] MEDS: LOSARTAN 50 MG TABLET. PO SCH (08:29)
[2017-02-11] MEDS: CHOLECALCIFEROL (VITAMIN D3) 1,000 UNIT TABLET PO SCH (08:29)
[2017-02-11] MEDS: RIVASTIGMINE 4.6MG PATCH. TD SCH (08:30)
[2017-02-11] MEDS: LOTEPREDNOL ETAB 0.5% OPHTH SUSPENSION 5ML BOTTLE. OU SCH (08:33)
[2017-02-11] MEDS: GLUCOPHAGE 500 MG PO SCH (08:33)
[2017-02-11] MEDS ORDERED: RIVASTIGMINE 4.6MG PATCH. TD SCH (09:00)
[2017-02-11] MEDS: traZODone 50 MG TABLET. PO SCH (19:39)
[2017-02-11 20:25] VITALS: BP 165/76
--- NOTE | 2017-02-11 21:07 | PDOC ---
Exam Jt Demential Exam: Jt Note: Please also refer to the separate dictated note~for this date of service dictated separately.~Patient seen individually. Discussed the patient with Nursing staff reviewed the chart.~Reviewed interim history and current functioning. Reviewed vital signs,~Labs/ Radiology~and current medications noted below. Continue current treatment with the changes noted in the dictated addendum note Assessment: Vital Signs: Vital Signs Date Time Temp Pulse Resp B/P (MAP) Pulse Ox O2 Delivery O2 Flow Rate FiO2 02/11/17 20:25 97.9 97 18 165/76 (105) 97 02/09/17 05:50 Room Air I&O Intake and Output 02/12/17 07:00 Intake Total 1260 ml Balance 1260 ml Intake Oral 1260 ml # Bowel Movements 1 Labs: Laboratory Tests Test 02/11/17 07:06 02/11/17 11:20 02/11/17 16:26 02/11/17 19:05 Glucose (Fingerstick) 163 mg/dL (70-99) H 189 mg/dL (70-99) H 129 mg/dL (70-99) H 238 mg/dL (70-99) H Current Medications: Meds: Current Medications Acetaminophen (Tylenol) 650 mg PRN Q6HRS PRN PO PAIN / TEMP; Start 02/04/17 at 18:15 Multi-Ingredient Ointment (Analgesic [place]) 1 camilo PRN QID PRN TP MUSCLE PAIN; Start 02/04/17 at 18:15 Al Hydroxide/Mg Hydroxide (Mylanta Plus Xs) 15 ml PRN AFTMEALHC PRN PO DYSPEPSIA; Start 02/04/17 at 18:15 Magnesium Hydroxide (Milk Of Magnesia) 2,400 mg PRN QHS PRN PO CONSTIPATION; Start 02/04/17 at 18:15 Bupropion HCl (Wellbutrin Xl) 300 mg DAILY PO Last administered on 02/10/17 08 :34; Start 02/05/17 at 09:00; Stop 02/10/17 at 09:56; Status DC Vitamin D (Vitamin D3) 1,000 unit DAILY PO Last administered on 02/11/17 08:29 ; Start 02/05/17 at 09:00 Duloxetine HCl (Cymbalta) 60 mg DAILY PO Last administered on 02/11/17 08:29; Start 02/05/17 at 09:00 Haloperidol (Haldol) 1 mg PRN TID PRN PO ANXIETY / AGITATION Last administered on 02/05/17 10:11; Start 02/04/17 at 18:45 Levothyroxine Sodium (Synthroid) 137 mcg DAILYAC PO ; Start 02/05/17 at 07:30; Stop 02/05/17 at 07:30; Status DC Loteprednol Etabonate (Lotemax) 1 drop DAILY OU Last administered on 02/11/17 08:33; Start 02/05/17 at 09:00 Metformin HCl (Glucophage) 500 mg DAILYWBKFT PO Last administered on 02/06/17 08:28; Start 02/05/17 at 08:00; Stop 02/06/17 at 17:18; Status DC Ondansetron HCl (Zofran Odt) 4 mg PRN Q4HRS PRN PO NAUSEA/VOMITING; Start 02/04 at 18:45 Pantoprazole Sodium (Protonix) 40 mg DAILY PO Last administered on 02/11/17 08 :28; Start 02/05/17 at 09:00 Trazodone HCl (Desyrel) 25 mg HS PO Last administered on 02/11/17 19:39; Start 02/04/17 at 21:00 Losartan Potassium (Cozaar) 100 mg DAILY PO Last administered on 02/11/17 08: 29; Start 02/05/17 at 09:00 Info (FLU VACCINE per PROTOCOL) 1 ea PRN 1X PRN MC PER PROTOCOL; Start at 19:00; Status UNV Pneumococcal Polyvalent Vaccine (Pneumovax 23) 0.5 ml ONCE ONCE VAX IM Last administered on 02/05/17 15:36; Start 02/05/17 at 09:00; Stop 02/05/17 at 09:01 ; Status DC Influenza Virus Vaccine Quadrival (Fluarix Quad 7347-9140 Syringe) 0.5 ml ONCE ONCE VAX IM Last administered on 02/05/17 15:29; Start 02/05/17 at 09:00; Stop 02/05/17 at 09:01; Status DC Levothyroxine Sodium (Synthroid) 137 mcg DAILY07 PO Last administered on 9/22/ 17at 05:30; Start 02/05/17 at 07:00 Quetiapine Fumarate (SEROquel) 12.5 mg BID@0900,1300 PO Last administered on 13:20; Start 02/06/17 at 13:00; Stop 02/07/17 at 18:38; Status DC Non-Formulary Medication 1 ea DAILYWBKFT PO Last administered on 02/11/17 08: 33; Start 02/07/17 at 08:00 Quetiapine Fumarate (SEROquel) 12.5 mg DAILY PO Last administered on 02/11/17 08:29; Start 02/08/17 at 09:00 Rivastigmine (Exelon) 1 patch DAILY TD ; Start 02/11/17 at 09:00; Stop 02/11/17 at 09:00; Status DC Rivastigmine (Exelon) 1 patch DAILY TD Last administered on 02/11/17 08:30; Start 02/10/17 at 10:00 Active Scripts Active Reported Zofran Odt (Ondansetron) 4 Mg Tab.rapdis 4 Mg PO PRN Q4HRS PRN Haloperidol 2 Mg Tablet 0.5 Tab PO PRN TID PRN Glucophage (Metformin Hcl) 500 Mg Tablet 500 Mg PO DAILY Trazodone Hcl 50 Mg Tablet 25 Mg PO HS Pantoprazole Sodium 40 Mg Tablet.dr 40 Mg PO DAILY Benicar (Olmesartan Medoxomil) 40 Mg Tablet 40 Mg PO DAILY Lotemax (Loteprednol Etabonate) 5 Ml Drops.susp 1 Drop EACHEYE DAILY Levothyroxine Sodium 137 Mcg Tablet 137 Mcg PO DAILYAC Cymbalta (Duloxetine Hcl) 60 Mg Capsule.dr 60 Mg PO DAILY Vitamin D3 (Cholecalciferol (Vitamin D3)) 1,000 Unit Tablet 1,000 Unit PO DAILY Bupropion Xl (Bupropion Hcl) 300 Mg Tab.er.24h 300 Mg PO DAILY Diagnosis: Problems: (1) Anxiety disorder (2) Impulse control disorder (3) Dementia, vascular, with depression (4) Dementia, vascular, with delusions (5) Dementia in Alzheimer's disease with depression (6) Dementia in Alzheimer's disease with delusions VALERIA SHEPHERD MD Feb 11, 2017 21:07
--- NOTE | 2017-02-12 01:59 | PN ---
DATE: 02/10/2017 This is a late entry 02/10/2017, covers the elements not covered in my initial note of 02/10/2017. SUBJECTIVE: The patient was staffed at treatment team meeting morning of 02/10/2017, seen individually evening of 02/10/2017. At the treatment team meeting, the patient's daughter, Jazlyn from [place], [place] attended together with Liliam from [place]. We reviewed her history at length of progressive memory deficits and the patient had been living with Liliam for about 3 months in [place] and then came to the [place] area. Prior to that, she lived in [place]. Reviewed the patient's diagnosis and possibly vascular dementia, early with delusion, depression, prognosis, and said there are many questions. The patient slept 6-1/2 hours previous evening. REVIEW OF SYSTEMS: Ambulation impaired with a walker. No CV, , pulmonary, eye system symptoms on review. MENTAL STATUS EXAM: Oriented to herself and situation. Speech has some latency, coherent. Abstraction fair, computation impaired, language function intact, attention span short. Mood and affect somewhat anxious, dysphoric at times. LABORATORY DATA: Reviewed. IMPRESSION: Unchanged from initial note. PLAN: Start the patient on Exelon patch 4.6 mg a day. Continue Wellbutrin 300 mg daily, Cymbalta 60 mg a day, trazodone along with Seroquel 12.5 mg daily. If irritability persists, we may stop the Wellbutrin; if needed, increase the Seroquel. There is a family history of Alzheimer's disease in an aunt and that is the reason, I am starting Exelon patch. Even though given her diabetes mellitus, hypertension, it is more likely that the majority of her memory deficits is vascular in nature and Exelon may be of little benefit, but we will see how she does before deciding. Reviewed drug interactions, risk/benefit ratio favors no further change at this time. VALERIA SHEPHERD MD DR: MARSHALL/silvestre JOB#: [id number] / [id number]
[2017-02-12] MEDS: LEVOTHYROXINE 137 MCG TABLET PO SCH (05:58)
[2017-02-12 06:24] VITALS: BP 156/78
[2017-02-12] MEDS: RIVASTIGMINE 4.6MG PATCH. TD SCH (08:09)
[2017-02-12] MEDS: GLUCOPHAGE 500 MG PO SCH (08:10)
[2017-02-12] MEDS: CHOLECALCIFEROL (VITAMIN D3) 1,000 UNIT TABLET PO SCH (08:10)
[2017-02-12] MEDS: LOSARTAN 50 MG TABLET. PO SCH (08:10)
[2017-02-12] MEDS: QUEtiapine 25 MG TABLET. PO SCH (08:11)
[2017-02-12] MEDS: DULoxetine HCL 60 MG CAPSULE.DR PO SCH (08:11)
[2017-02-12] MEDS: PANTOPRAZOLE 40 MG TABLET. PO SCH (08:12)
[2017-02-12] MEDS: LOTEPREDNOL ETAB 0.5% OPHTH SUSPENSION 5ML BOTTLE. OU SCH (08:13)
[2017-02-12] MEDS: HALOPERIDOL 1 MG TABLET PO PRN (15:45)
[2017-02-12 17:11] VITALS: BP 180/96
[2017-02-12] MEDS: traZODone 50 MG TABLET. PO SCH (20:53)
--- NOTE | 2017-02-12 21:19 | PDOC ---
Exam Jt Demential Exam: Jt Note: Please also refer to the separate dictated note~for this date of service dictated separately.~Patient seen individually. Discussed the patient with Nursing staff reviewed the chart.~Reviewed interim history and current functioning. Reviewed vital signs,~Labs/ Radiology~and current medications noted below. Continue current treatment with the changes noted in the dictated addendum note Assessment: Vital Signs: Vital Signs Date Time Temp Pulse Resp B/P (MAP) Pulse Ox O2 Delivery O2 Flow Rate FiO2 02/12/17 17:11 98.1 105 18 180/96 (124) 93 Room Air I&O Intake and Output 02/13/17 07:00 Intake Total 960 ml Balance 960 ml Intake Oral 960 ml Labs: Laboratory Tests Test 02/12/17 07:42 02/12/17 11:26 02/12/17 16:56 02/12/17 19:18 Glucose (Fingerstick) 166 mg/dL (70-99) H 191 mg/dL (70-99) H 172 mg/dL (70-99) H 203 mg/dL (70-99) H Current Medications: Meds: Current Medications Acetaminophen (Tylenol) 650 mg PRN Q6HRS PRN PO PAIN / TEMP; Start 02/04/17 at 18:15 Multi-Ingredient Ointment (Analgesic [place]) 1 camilo PRN QID PRN TP MUSCLE PAIN; Start 02/04/17 at 18:15 Al Hydroxide/Mg Hydroxide (Mylanta Plus Xs) 15 ml PRN AFTMEALHC PRN PO DYSPEPSIA; Start 02/04/17 at 18:15 Magnesium Hydroxide (Milk Of Magnesia) 2,400 mg PRN QHS PRN PO CONSTIPATION; Start 02/04/17 at 18:15 Bupropion HCl (Wellbutrin Xl) 300 mg DAILY PO Last administered on 02/10/17 08 :34; Start 02/05/17 at 09:00; Stop 02/10/17 at 09:56; Status DC Vitamin D (Vitamin D3) 1,000 unit DAILY PO Last administered on 02/12/17 08:10 ; Start 02/05/17 at 09:00 Duloxetine HCl (Cymbalta) 60 mg DAILY PO Last administered on 02/12/17 08:11; Start 02/05/17 at 09:00 Haloperidol (Haldol) 1 mg PRN TID PRN PO ANXIETY / AGITATION Last administered on 02/12/17 15:45; Start 02/04/17 at 18:45 Levothyroxine Sodium (Synthroid) 137 mcg DAILYAC PO ; Start 02/05/17 at 07:30; Stop 02/05/17 at 07:30; Status DC Loteprednol Etabonate (Lotemax) 1 drop DAILY OU Last administered on 02/12/17 08:13; Start 02/05/17 at 09:00 Metformin HCl (Glucophage) 500 mg DAILYWBKFT PO Last administered on 02/06/17 08:28; Start 02/05/17 at 08:00; Stop 02/06/17 at 17:18; Status DC Ondansetron HCl (Zofran Odt) 4 mg PRN Q4HRS PRN PO NAUSEA/VOMITING; Start 02/04 at 18:45 Pantoprazole Sodium (Protonix) 40 mg DAILY PO Last administered on 02/12/17 08 :12; Start 02/05/17 at 09:00 Trazodone HCl (Desyrel) 25 mg HS PO Last administered on 02/12/17 20:53; Start 02/04/17 at 21:00 Losartan Potassium (Cozaar) 100 mg DAILY PO Last administered on 02/12/17 08: 10; Start 02/05/17 at 09:00 Info (FLU VACCINE per PROTOCOL) 1 ea PRN 1X PRN MC PER PROTOCOL; Start at 19:00; Status UNV Pneumococcal Polyvalent Vaccine (Pneumovax 23) 0.5 ml ONCE ONCE VAX IM Last administered on 02/05/17 15:36; Start 02/05/17 at 09:00; Stop 02/05/17 at 09:01 ; Status DC Influenza Virus Vaccine Quadrival (Fluarix Quad [id number] Syringe) 0.5 ml ONCE ONCE VAX IM Last administered on 02/05/17 15:29; Start 02/05/17 at 09:00; Stop 02/05/17 at 09:01; Status DC Levothyroxine Sodium (Synthroid) 137 mcg DAILY07 PO Last administered on 05:58; Start 02/05/17 at 07:00 Quetiapine Fumarate (SEROquel) 12.5 mg BID@0900,1300 PO Last administered on 13:20; Start 02/06/17 at 13:00; Stop 02/07/17 at 18:38; Status DC Non-Formulary Medication 1 ea DAILYWBKFT PO Last administered on 02/12/17 08: 10; Start 02/07/17 at 08:00 Quetiapine Fumarate (SEROquel) 12.5 mg DAILY PO Last administered on 02/12/17 08:11; Start 02/08/17 at 09:00 Rivastigmine (Exelon) 1 patch DAILY TD ; Start 02/11/17 at 09:00; Stop 02/11/17 at 09:00; Status DC Rivastigmine (Exelon) 1 patch DAILY TD Last administered on 02/12/17 08:09; Start 02/10/17 at 10:00 Active Scripts Active Reported Zofran Odt (Ondansetron) 4 Mg Tab.rapdis 4 Mg PO PRN Q4HRS PRN Haloperidol 2 Mg Tablet 0.5 Tab PO PRN TID PRN Glucophage (Metformin Hcl) 500 Mg Tablet 500 Mg PO DAILY Trazodone Hcl 50 Mg Tablet 25 Mg PO HS Pantoprazole Sodium 40 Mg Tablet.dr 40 Mg PO DAILY Benicar (Olmesartan Medoxomil) 40 Mg Tablet 40 Mg PO DAILY Lotemax (Loteprednol Etabonate) 5 Ml Drops.susp 1 Drop EACHEYE DAILY Levothyroxine Sodium 137 Mcg Tablet 137 Mcg PO DAILYAC Cymbalta (Duloxetine Hcl) 60 Mg Capsule.dr 60 Mg PO DAILY Vitamin D3 (Cholecalciferol (Vitamin D3)) 1,000 Unit Tablet 1,000 Unit PO DAILY Bupropion Xl (Bupropion Hcl) 300 Mg Tab.er.24h 300 Mg PO DAILY Diagnosis: Problems: (1) Anxiety disorder (2) Impulse control disorder (3) Dementia, vascular, with depression (4) Dementia, vascular, with delusions (5) Dementia in Alzheimer's disease with depression (6) Dementia in Alzheimer's disease with delusions VALERIA SHEPHERD MD Feb 12, 2017 21:19
--- NOTE | 2017-02-12 22:23 | PN ---
DATE: 02/11/2017 PSYCHIATRIC PROGRESS NOTE This late entry 02/11/2017 covers elements not covered in my initial note 02/11/2017. Met with the patient evening of 02/11/2017. The patient was having auditory hallucinations previous evening, anxious, restless. No CV, , pulmonary, eye, ENT system symptoms on review. Gait unsteady. MENTAL STATUS EXAM: Oriented to herself and situation. Speech coherent. She is pleasant, verbal, as I met with her. Abstraction fair, computation impaired, language function intact. Mood and affect showing improvement. LABORATORY DATA: Reviewed. IMPRESSION: Unchanged from initial note. PLAN: Continue current psychotropics. Adjust further as clinically indicated. Reviewed drug interactions. Risks benefit ratio favors no further change. VALERIA SHEPHERD MD DR: MARSHALL/silvestre JOB#: [id number] / [id number]
[2017-02-13] MEDS: LEVOTHYROXINE 137 MCG TABLET PO SCH (05:30)
[2017-02-13 06:23] VITALS: BP 154/86
[2017-02-13] MEDS: GLUCOPHAGE 500 MG PO SCH (08:00)
[2017-02-13] MEDS: PANTOPRAZOLE 40 MG TABLET. PO SCH (08:33)
[2017-02-13] MEDS: QUEtiapine 25 MG TABLET. PO SCH (08:34)
[2017-02-13] MEDS: LOSARTAN 50 MG TABLET. PO SCH (08:34)
[2017-02-13] MEDS: CHOLECALCIFEROL (VITAMIN D3) 1,000 UNIT TABLET PO SCH (08:34)
[2017-02-13] MEDS: DULoxetine HCL 60 MG CAPSULE.DR PO SCH (08:34)
[2017-02-13] MEDS: RIVASTIGMINE 4.6MG PATCH. TD SCH (08:35)
[2017-02-13] MEDS: LOTEPREDNOL ETAB 0.5% OPHTH SUSPENSION 5ML BOTTLE. OU SCH (08:35)
[2017-02-13 16:32] VITALS: BP 134/79
--- NOTE | 2017-02-13 20:14 | PN ---
DATE: 02/12/2017 This late entry 02/12/2017 covers elements not covered in my initial note 02/12/2017. I met with the patient in the evening of 02/12/2017. She has been fairly cooperative, calm, somewhat delusional at times. Believes she was on a ship, somewhat paranoid, but better than before ___. REVIEW OF SYSTEMS: Ambulation impaired with a walker. No CV, , pulmonary, eye, ENT system symptoms on review. MENTAL STATUS EXAM: Oriented to herself and situation. Speech coherent, has some latency, abstraction fair, computation impaired, language function intact, attention span short, Mood and affect overall less labile. IMPRESSION: Unchanged from initial note. PLAN: Continue current psychotropics. Reviewed drug interactions. Risk/benefit ratio favors no further change. VALERIA SHEPHERD MD DR: MARSHALL/silvestre JOB#: [id number] / [id number]
[2017-02-13] MEDS: traZODone 50 MG TABLET. PO SCH (20:54)
--- NOTE | 2017-02-13 22:54 | PDOC ---
Exam Jt Demential Exam: Jt Note: Please also refer to the separate dictated note~for this date of service dictated separately.~Patient seen individually. Discussed the patient with Nursing staff reviewed the chart.~Reviewed interim history and current functioning. Reviewed vital signs,~Labs/ Radiology~and current medications noted below. Continue current treatment with the changes noted in the dictated addendum note Assessment: Vital Signs: Vital Signs Date Time Temp Pulse Resp B/P (MAP) Pulse Ox O2 Delivery O2 Flow Rate FiO2 02/13/17 16:32 97.8 80 16 134/79 (97) 96 02/12/17 17:11 Room Air I&O Intake and Output 02/14/17 07:00 Intake Total 840 ml Balance 840 ml Intake Oral 840 ml Labs: Laboratory Tests Test 02/13/17 07:20 02/13/17 11:13 02/13/17 16:55 02/13/17 19:36 Glucose (Fingerstick) 135 mg/dL (70-99) H 228 mg/dL (70-99) H 160 mg/dL (70-99) H 165 mg/dL (70-99) H Current Medications: Meds: Current Medications Acetaminophen (Tylenol) 650 mg PRN Q6HRS PRN PO PAIN / TEMP; Start 02/04/17 at 18:15 Multi-Ingredient Ointment (Analgesic [place]) 1 camilo PRN QID PRN TP MUSCLE PAIN; Start 02/04/17 at 18:15 Al Hydroxide/Mg Hydroxide (Mylanta Plus Xs) 15 ml PRN AFTMEALHC PRN PO DYSPEPSIA; Start 02/04/17 at 18:15 Magnesium Hydroxide (Milk Of Magnesia) 2,400 mg PRN QHS PRN PO CONSTIPATION; Start 02/04/17 at 18:15 Bupropion HCl (Wellbutrin Xl) 300 mg DAILY PO Last administered on 02/10/17 08 :34; Start 02/05/17 at 09:00; Stop 02/10/17 at 09:56; Status DC Vitamin D (Vitamin D3) 1,000 unit DAILY PO Last administered on 02/13/17 08:34 ; Start 02/05/17 at 09:00 Duloxetine HCl (Cymbalta) 60 mg DAILY PO Last administered on 02/13/17 08:34; Start 02/05/17 at 09:00 Haloperidol (Haldol) 1 mg PRN TID PRN PO ANXIETY / AGITATION Last administered on 02/12/17 15:45; Start 02/04/17 at 18:45 Levothyroxine Sodium (Synthroid) 137 mcg DAILYAC PO ; Start 02/05/17 at 07:30; Stop 02/05/17 at 07:30; Status DC Loteprednol Etabonate (Lotemax) 1 drop DAILY OU Last administered on 02/13/17 08:35; Start 02/05/17 at 09:00 Metformin HCl (Glucophage) 500 mg DAILYWBKFT PO Last administered on 02/06/17 08:28; Start 02/05/17 at 08:00; Stop 02/06/17 at 17:18; Status DC Ondansetron HCl (Zofran Odt) 4 mg PRN Q4HRS PRN PO NAUSEA/VOMITING; Start 02/04 at 18:45 Pantoprazole Sodium (Protonix) 40 mg DAILY PO Last administered on 02/13/17 08 :33; Start 02/05/17 at 09:00 Trazodone HCl (Desyrel) 25 mg HS PO Last administered on 02/13/17 20:54; Start 02/04/17 at 21:00 Losartan Potassium (Cozaar) 100 mg DAILY PO Last administered on 02/13/17 08: 34; Start 02/05/17 at 09:00 Info (FLU VACCINE per PROTOCOL) 1 ea PRN 1X PRN MC PER PROTOCOL; Start at 19:00; Status UNV Pneumococcal Polyvalent Vaccine (Pneumovax 23) 0.5 ml ONCE ONCE VAX IM Last administered on 02/05/17 15:36; Start 02/05/17 at 09:00; Stop 02/05/17 at 09:01 ; Status DC Influenza Virus Vaccine Quadrival (Fluarix Quad [id number] Syringe) 0.5 ml ONCE ONCE VAX IM Last administered on 02/05/17 15:29; Start 02/05/17 at 09:00; Stop 02/05/17 at 09:01; Status DC Levothyroxine Sodium (Synthroid) 137 mcg DAILY07 PO Last administered on 05:30; Start 02/05/17 at 07:00 Quetiapine Fumarate (SEROquel) 12.5 mg BID@0900,1300 PO Last administered on 13:20; Start 02/06/17 at 13:00; Stop 02/07/17 at 18:38; Status DC Non-Formulary Medication 1 ea DAILYWBKFT PO Last administered on 02/13/17 08: 00; Start 02/07/17 at 08:00 Quetiapine Fumarate (SEROquel) 12.5 mg DAILY PO Last administered on 02/13/17 08:34; Start 02/08/17 at 09:00 Rivastigmine (Exelon) 1 patch DAILY TD ; Start 02/11/17 at 09:00; Stop 02/11/17 at 09:00; Status DC Rivastigmine (Exelon) 1 patch DAILY TD Last administered on 02/13/17 08:35; Start 02/10/17 at 10:00; Stop 02/13/17 at 19:10; Status DC Rivastigmine (Exelon) 1 patch DAILY TD ; Start 02/14/17 at 09:00 Active Scripts Active Reported Zofran Odt (Ondansetron) 4 Mg Tab.rapdis 4 Mg PO PRN Q4HRS PRN Haloperidol 2 Mg Tablet 0.5 Tab PO PRN TID PRN Glucophage (Metformin Hcl) 500 Mg Tablet 500 Mg PO DAILY Trazodone Hcl 50 Mg Tablet 25 Mg PO HS Pantoprazole Sodium 40 Mg Tablet.dr 40 Mg PO DAILY Benicar (Olmesartan Medoxomil) 40 Mg Tablet 40 Mg PO DAILY Lotemax (Loteprednol Etabonate) 5 Ml Drops.susp 1 Drop EACHEYE DAILY Levothyroxine Sodium 137 Mcg Tablet 137 Mcg PO DAILYAC Cymbalta (Duloxetine Hcl) 60 Mg Capsule.dr 60 Mg PO DAILY Vitamin D3 (Cholecalciferol (Vitamin D3)) 1,000 Unit Tablet 1,000 Unit PO DAILY Bupropion Xl (Bupropion Hcl) 300 Mg Tab.er.24h 300 Mg PO DAILY Diagnosis: Problems: (1) Anxiety disorder (2) Impulse control disorder (3) Dementia, vascular, with depression (4) Dementia, vascular, with delusions (5) Dementia in Alzheimer's disease with depression (6) Dementia in Alzheimer's disease with delusions VALERIA SHEPHERD MD Feb 13, 2017 22:54
[2017-02-14] MEDS: LEVOTHYROXINE 137 MCG TABLET PO SCH (05:39)
[2017-02-14 06:37] VITALS: BP 172/62
[2017-02-14 06:41] LABS: BACTERIA,URINE 0 /HPF (0-FEW); BILIRUBIN,URINE NEG (NEG); CLARITY,URINE CLEAR; COLOR,URINE YELLOW; GLUCOSE,URINE NEG (NEG); NITRITE,URINE NEG (NEG); RBC,URINE RARE /HPF (0-2); SQUAMOUS EPITHELIAL CELL,UR FEW /LPF; UROBILINOGEN,URINE 0.2 mg/dL (0.2 mg/dL)
[2017-02-14 06:41] LABS: BASO # 0.1 x10^3/uL (0.0-0.2); BASO % 1 % (0-3); EOS # 0.2 x10^3/uL (0.0-0.7); EOS % 3 % (0-3); HEMATOCRIT 27.1 % (36.0-47.0); HEMOGLOBIN 9.1 g/dL (12.0-15.5); LYMPH % 17 % (24-48); MEAN CORPUSCULAR HEMOGLOBIN 31 pg (25-35); MEAN CORPUSCULAR HGB CONC 33 g/dL (31-37); MEAN CORPUSCULAR VOLUME 92 fL (79-100); MONO # 0.5 x10^3/uL (0.0-1.1); MONO % 9 % (0-9); NEUT # 3.8 x10^3uL (1.8-7.7); NEUT % 70 % (31-73); PLATELET COUNT 486 x10^3/uL (140-400); RED BLOOD COUNT 2.95 x10^6/uL (3.50-5.40); RED CELL DISTRIBUTION WIDTH 16.4 % (11.5-14.5); WHITE BLOOD COUNT 5.5 x10^3/uL (4.0-11.0)
[2017-02-14 06:47] LABS: ALBUMIN 3.1 g/dL (3.4-5.0); CALCIUM 8.9 mg/dL (8.5-10.1); GFR 53.2; POTASSIUM 4.2 mmol/L (3.5-5.1); TOTAL BILIRUBIN 0.2 mg/dL (0.2-1.0); TOTAL PROTEIN 6.2 g/dL (6.4-8.2)
[2017-02-14] MEDS: GLUCOPHAGE 500 MG PO SCH (08:00)
[2017-02-14] MEDS: DULoxetine HCL 60 MG CAPSULE.DR PO SCH (08:50)
[2017-02-14] MEDS: LOSARTAN 50 MG TABLET. PO SCH (08:50)
[2017-02-14] MEDS: PANTOPRAZOLE 40 MG TABLET. PO SCH (08:50)
[2017-02-14] MEDS: QUEtiapine 25 MG TABLET. PO SCH (08:51)
[2017-02-14] MEDS: CHOLECALCIFEROL (VITAMIN D3) 1,000 UNIT TABLET PO SCH (08:51)
[2017-02-14] MEDS: LOTEPREDNOL ETAB 0.5% OPHTH SUSPENSION 5ML BOTTLE. OU SCH (08:53)
[2017-02-14] MEDS: RIVASTIGMINE 9.5MG PATCH. TD SCH (08:53)
[2017-02-14 16:30] VITALS: BP 175/91
[2017-02-14] MEDS: traZODone 50 MG TABLET. PO SCH (20:23)
--- NOTE | 2017-02-14 21:10 | PDOC ---
Exam Jt Demential Exam: Jt Note: Please also refer to the separate dictated note~for this date of service dictated separately.~Patient seen individually. Discussed the patient with Nursing staff reviewed the chart.~Reviewed interim history and current functioning. Reviewed vital signs,~Labs/ Radiology~and current medications noted below. Continue current treatment with the changes noted in the dictated addendum note Assessment: Vital Signs: Vital Signs Date Time Temp Pulse Resp B/P (MAP) Pulse Ox O2 Delivery O2 Flow Rate FiO2 02/14/17 16:30 97.8 94 16 175/91 (119) 100 02/12/17 17:11 Room Air I&O Intake and Output 02/15/17 07:00 Intake Total 960 ml Balance 960 ml Intake Oral 960 ml Labs: Laboratory Tests Test 02/14/17 05:30 02/14/17 06:17 02/14/17 07:23 02/14/17 11:44 Urine Collection Type Unknown Urine Color Yellow Urine Clarity Clear Urine pH 6.5 Urine Specific [place] 1.010 Urine Protein Neg (NEG-TRACE) Urine Glucose (UA) Neg mg/dL (NEG) Urine Ketones (Stick) Neg mg/dL (NEG) Urine Blood Neg (NEG) Urine Nitrite Neg (NEG) Urine Bilirubin Neg (NEG) Urine Urobilinogen Dipstick 0.2 mg/dL (0.2 mg/dL) Urine Leukocyte Esterase Trace (NEG) Urine RBC Rare /HPF (0-2) Urine WBC 1-4 /HPF (0-4) Urine Squamous Epithelial Cells Few /LPF Urine Transitional Epithelial Cells Occ /LPF Urine Bacteria 0 /HPF (0-FEW) Urine Mucus Slight /LPF White Blood Count 5.5 x10^3/uL (4.0-11.0) Red Blood Count 2.95 x10^6/uL (3.50-5.40) L Hemoglobin 9.1 g/dL (12.0-15.5) L Hematocrit 27.1 % (36.0-47.0) L Mean Corpuscular Volume 92 fL (79-100) Mean Corpuscular Hemoglobin 31 pg (25-35) Mean Corpuscular Hemoglobin Concent 33 g/dL (31-37) Red Cell Distribution Width 16.4 % (11.5-14.5) H Platelet Count 486 x10^3/uL (140-400) H Neutrophils (%) (Auto) 70 % (31-73) Lymphocytes (%) (Auto) 17 % (24-48) L Monocytes (%) (Auto) 9 % (0-9) Eosinophils (%) (Auto) 3 % (0-3) Basophils (%) (Auto) 1 % (0-3) Neutrophils # (Auto) 3.8 x10^3uL (1.8-7.7) Lymphocytes # (Auto) 1.0 x10^3/uL (1.0-4.8) Monocytes # (Auto) 0.5 x10^3/uL (0.0-1.1) Eosinophils # (Auto) 0.2 x10^3/uL (0.0-0.7) Basophils # (Auto) 0.1 x10^3/uL (0.0-0.2) Sodium Level 138 mmol/L (136-145) Potassium Level 4.2 mmol/L (3.5-5.1) Chloride Level 103 mmol/L (98-107) Carbon Dioxide Level 29 mmol/L (21-32) Anion Gap 6 (6-14) Blood Urea Nitrogen 17 mg/dL (7-20) Creatinine 1.0 mg/dL (0.6-1.0) Estimated GFR (Cockcroft-Gault) 53.2 BUN/Creatinine Ratio 17 (6-20) Glucose Level 175 mg/dL (70-99) H Calcium Level 8.9 mg/dL (8.5-10.1) Total Bilirubin 0.2 mg/dL (0.2-1.0) Aspartate Amino Transferase (AST) 10 U/L (15-37) L Alanine Aminotransferase (ALT) 28 U/L (14-59) Alkaline Phosphatase 110 U/L (46-116) Total Protein 6.2 g/dL (6.4-8.2) L Albumin 3.1 g/dL (3.4-5.0) L Albumin/Globulin Ratio 1.0 (1.0-1.7) Glucose (Fingerstick) 144 mg/dL (70-99) H 199 mg/dL (70-99) H Test 02/14/17 17:11 02/14/17 19:13 Glucose (Fingerstick) 127 mg/dL (70-99) H 170 mg/dL (70-99) H Current Medications: Meds: Current Medications Acetaminophen (Tylenol) 650 mg PRN Q6HRS PRN PO PAIN / TEMP; Start 02/04/17 at 18:15 Multi-Ingredient Ointment (Analgesic [place]) 1 camilo PRN QID PRN TP MUSCLE PAIN; Start 02/04/17 at 18:15 Al Hydroxide/Mg Hydroxide (Mylanta Plus Xs) 15 ml PRN AFTMEALHC PRN PO DYSPEPSIA; Start 02/04/17 at 18:15 Magnesium Hydroxide (Milk Of Magnesia) 2,400 mg PRN QHS PRN PO CONSTIPATION; Start 02/04/17 at 18:15 Bupropion HCl (Wellbutrin Xl) 300 mg DAILY PO Last administered on 02/10/17 08 :34; Start 02/05/17 at 09:00; Stop 02/10/17 at 09:56; Status DC Vitamin D (Vitamin D3) 1,000 unit DAILY PO Last administered on 02/14/17 08:51 ; Start 02/05/17 at 09:00 Duloxetine HCl (Cymbalta) 60 mg DAILY PO Last administered on 02/14/17 08:50; Start 02/05/17 at 09:00 Haloperidol (Haldol) 1 mg PRN TID PRN PO ANXIETY / AGITATION Last administered on 02/12/17 15:45; Start 02/04/17 at 18:45 Levothyroxine Sodium (Synthroid) 137 mcg DAILYAC PO ; Start 02/05/17 at 07:30; Stop 02/05/17 at 07:30; Status DC Loteprednol Etabonate (Lotemax) 1 drop DAILY OU Last administered on 02/14/17 08:53; Start 02/05/17 at 09:00 Metformin HCl (Glucophage) 500 mg DAILYWBKFT PO Last administered on 02/06/17 08:28; Start 02/05/17 at 08:00; Stop 02/06/17 at 17:18; Status DC Ondansetron HCl (Zofran Odt) 4 mg PRN Q4HRS PRN PO NAUSEA/VOMITING; Start 02/04 at 18:45 Pantoprazole Sodium (Protonix) 40 mg DAILY PO Last administered on 02/14/17 08 :50; Start 02/05/17 at 09:00 Trazodone HCl (Desyrel) 25 mg HS PO Last administered on 02/14/17 20:23; Start 02/04/17 at 21:00 Losartan Potassium (Cozaar) 100 mg DAILY PO Last administered on 02/14/17 08: 50; Start 02/05/17 at 09:00 Info (FLU VACCINE per PROTOCOL) 1 ea PRN 1X PRN MC PER PROTOCOL; Start at 19:00; Status UNV Pneumococcal Polyvalent Vaccine (Pneumovax 23) 0.5 ml ONCE ONCE VAX IM Last administered on 02/05/17 15:36; Start 02/05/17 at 09:00; Stop 02/05/17 at 09:01 ; Status DC Influenza Virus Vaccine Quadrival (Fluarix Quad 7209-2359 Syringe) 0.5 ml ONCE ONCE VAX IM Last administered on 02/05/17 15:29; Start 02/05/17 at 09:00; Stop 02/05/17 at 09:01; Status DC Levothyroxine Sodium (Synthroid) 137 mcg DAILY07 PO Last administered on 05:39; Start 02/05/17 at 07:00 Quetiapine Fumarate (SEROquel) 12.5 mg BID@0900,1300 PO Last administered on 13:20; Start 02/06/17 at 13:00; Stop 02/07/17 at 18:38; Status DC Non-Formulary Medication 1 ea DAILYWBKFT PO Last administered on 02/14/17 08: 00; Start 02/07/17 at 08:00 Quetiapine Fumarate (SEROquel) 12.5 mg DAILY PO Last administered on 02/14/17 08:51; Start 02/08/17 at 09:00 Rivastigmine (Exelon) 1 patch DAILY TD ; Start 02/11/17 at 09:00; Stop 02/11/17 at 09:00; Status DC Rivastigmine (Exelon) 1 patch DAILY TD Last administered on 02/13/17 08:35; Start 02/10/17 at 10:00; Stop 02/13/17 at 19:10; Status DC Rivastigmine (Exelon) 1 patch DAILY TD Last administered on 02/14/17t 08:53; Start 02/14/17 at 09:00 Active Scripts Active Reported Zofran Odt (Ondansetron) 4 Mg Tab.rapdis 4 Mg PO PRN Q4HRS PRN Haloperidol 2 Mg Tablet 0.5 Tab PO PRN TID PRN Glucophage (Metformin Hcl) 500 Mg Tablet 500 Mg PO DAILY Trazodone Hcl 50 Mg Tablet 25 Mg PO HS Pantoprazole Sodium 40 Mg Tablet.dr 40 Mg PO DAILY Benicar (Olmesartan Medoxomil) 40 Mg Tablet 40 Mg PO DAILY Lotemax (Loteprednol Etabonate) 5 Ml Drops.susp 1 Drop EACHEYE DAILY Levothyroxine Sodium 137 Mcg Tablet 137 Mcg PO DAILYAC Cymbalta (Duloxetine Hcl) 60 Mg Capsule.dr 60 Mg PO DAILY Vitamin D3 (Cholecalciferol (Vitamin D3)) 1,000 Unit Tablet 1,000 Unit PO DAILY Bupropion Xl (Bupropion Hcl) 300 Mg Tab.er.24h 300 Mg PO DAILY Diagnosis: Problems: (1) Anxiety disorder (2) Impulse control disorder (3) Dementia, vascular, with depression (4) Dementia, vascular, with delusions (5) Dementia in Alzheimer's disease with depression (6) Dementia in Alzheimer's disease with delusions VALERIA SHEPHERD MD Feb 14, 2017 21:10
[2017-02-15] MEDS: LEVOTHYROXINE 137 MCG TABLET PO SCH (06:23)
[2017-02-15 06:26] VITALS: BP 161/82
[2017-02-15] MEDS: GLUCOPHAGE 500 MG PO SCH (08:00)
[2017-02-15] MEDS: PANTOPRAZOLE 40 MG TABLET. PO SCH (08:20)
[2017-02-15] MEDS: CHOLECALCIFEROL (VITAMIN D3) 1,000 UNIT TABLET PO SCH (08:21)
[2017-02-15] MEDS: QUEtiapine 25 MG TABLET. PO SCH (08:21)
[2017-02-15] MEDS: DULoxetine HCL 60 MG CAPSULE.DR PO SCH (08:21)
[2017-02-15] MEDS: LOSARTAN 50 MG TABLET. PO SCH (08:21)
[2017-02-15] MEDS: RIVASTIGMINE 9.5MG PATCH. TD SCH (08:22)
[2017-02-15] MEDS: LOTEPREDNOL ETAB 0.5% OPHTH SUSPENSION 5ML BOTTLE. OU SCH (08:23)
[2017-02-15 16:12] VITALS: BP 149/79
[2017-02-15] MEDS: METOPROLOL SUCC 24HR ER 50 MG TAB.ER.24H. PO SCH (16:24)
[2017-02-15] MEDS: amLODIPine BESYLATE 5 MG TABLET PO SCH (16:24)
--- NOTE | 2017-02-15 16:53 | PN ---
DATE: 02/13/2017 PSYCHIATRIC PROGRESS NOTE This is a late entry 02/13/2017, covers elements not covered in my initial note of 02/13/2017. SUBJECTIVE: I met with the patient evening of 02/13/2017. Overall, the patient was pleasant most of the day, got little anxious, paranoid, received Haldol p.r.n. the previous day, which seem to help. She gets confused, was in someone else's bedroom at one point. We are checking UA and we will check CBC, CMP morning of 02/14/2017. CT head shows chronic ischemic changes. Returned a call from the patient's daughter, Jazlyn, . Jazlyn wanted to share the patient's past history of fall and head injury, concussion of her nose while she was in [place] with her other daughter. Since then, she has been intermittently delusional and then was found to have UTI. Some of this information had previously been shared by Jazlyn with us during the staffing meeting. REVIEW OF SYSTEMS: Ambulation impaired, with walker. No CV, , pulmonary, eye, ENT system symptoms on review. MENTAL STATUS EXAM: Oriented to herself and situation. Speech is coherent, has some latency. Abstraction fair, computation impaired, language function intact, attention span short. Mood and affect, lability is improved. LABORATORY DATA: Reviewed. IMPRESSION: Unchanged. PLAN: Increase Exelon patch from 4.6 mg a day to 9.5 mg a day. Maintain Cymbalta 60 mg a day, trazodone 12.5 mg at bedtime, Seroquel 12.5 mg daily. Review drug interactions. Risk/benefit ratio favors no further change. Check labs and UA of 02/14/2017. MAN Angelo SHEPHERD MD DR: MARSHALL/silvestre JOB#: [id number] / [id number]
[2017-02-15] MEDS: traZODone 50 MG TABLET. PO SCH (19:09)
--- NOTE | 2017-02-15 21:03 | PDOC ---
Exam Jt Demential Exam: Jt Note: Please also refer to the separate dictated note~for this date of service dictated separately.~Patient seen individually. Discussed the patient with Nursing staff reviewed the chart.~Reviewed interim history and current functioning. Reviewed vital signs,~Labs/ Radiology~and current medications noted below. Continue current treatment with the changes noted in the dictated addendum note Assessment: Vital Signs: Vital Signs Date Time Temp Pulse Resp B/P (MAP) Pulse Ox O2 Delivery O2 Flow Rate FiO2 02/15/17 16:24 91 149/79 02/15/17 16:12 97.6 19 98 02/12/17 17:11 Room Air I&O Intake and Output 02/16/17 07:00 Intake Total 600 ml Balance 600 ml Intake Oral 600 ml Labs: Laboratory Tests Test 02/15/17 07:53 02/15/17 11:07 02/15/17 16:24 Glucose (Fingerstick) 159 mg/dL (70-99) H 272 mg/dL (70-99) H 142 mg/dL (70-99) H Current Medications: Meds: Current Medications Acetaminophen (Tylenol) 650 mg PRN Q6HRS PRN PO PAIN / TEMP; Start 02/04/17 at 18:15 Multi-Ingredient Ointment (Analgesic [place]) 1 camilo PRN QID PRN TP MUSCLE PAIN; Start 02/04/17 at 18:15 Al Hydroxide/Mg Hydroxide (Mylanta Plus Xs) 15 ml PRN AFTMEALHC PRN PO DYSPEPSIA; Start 02/04/17 at 18:15 Magnesium Hydroxide (Milk Of Magnesia) 2,400 mg PRN QHS PRN PO CONSTIPATION; Start 02/04/17 at 18:15 Bupropion HCl (Wellbutrin Xl) 300 mg DAILY PO Last administered on 02/10/17 08 :34; Start 02/05/17 at 09:00; Stop 02/10/17 at 09:56; Status DC Vitamin D (Vitamin D3) 1,000 unit DAILY PO Last administered on 02/15/17 08:21 ; Start 02/05/17 at 09:00 Duloxetine HCl (Cymbalta) 60 mg DAILY PO Last administered on 02/15/17 08:21; Start 02/05/17 at 09:00 Haloperidol (Haldol) 1 mg PRN TID PRN PO ANXIETY / AGITATION Last administered on 02/12/17 15:45; Start 02/04/17 at 18:45 Levothyroxine Sodium (Synthroid) 137 mcg DAILYAC PO ; Start 02/05/17 at 07:30; Stop 02/05/17 at 07:30; Status DC Loteprednol Etabonate (Lotemax) 1 drop DAILY OU Last administered on 02/15/17 08:23; Start 02/05/17 at 09:00 Metformin HCl (Glucophage) 500 mg DAILYWBKFT PO Last administered on 02/06/17 08:28; Start 02/05/17 at 08:00; Stop 02/06/17 at 17:18; Status DC Ondansetron HCl (Zofran Odt) 4 mg PRN Q4HRS PRN PO NAUSEA/VOMITING; Start 02/04 at 18:45 Pantoprazole Sodium (Protonix) 40 mg DAILY PO Last administered on 02/15/17 08 :20; Start 02/05/17 at 09:00 Trazodone HCl (Desyrel) 25 mg HS PO Last administered on 02/15/17 19:09; Start 02/04/17 at 21:00 Losartan Potassium (Cozaar) 100 mg DAILY PO Last administered on 02/15/17 08: 21; Start 02/05/17 at 09:00 Info (FLU VACCINE per PROTOCOL) 1 ea PRN 1X PRN MC PER PROTOCOL; Start at 19:00; Status UNV Pneumococcal Polyvalent Vaccine (Pneumovax 23) 0.5 ml ONCE ONCE VAX IM Last administered on 02/05/17 15:36; Start 02/05/17 at 09:00; Stop 02/05/17 at 09:01 ; Status DC Influenza Virus Vaccine Quadrival (Fluarix Quad [id number] Syringe) 0.5 ml ONCE ONCE VAX IM Last administered on 02/05/17 15:29; Start 02/05/17 at 09:00; Stop 02/05/17 at 09:01; Status DC Levothyroxine Sodium (Synthroid) 137 mcg DAILY07 PO Last administered on 06:23; Start 02/05/17 at 07:00 Quetiapine Fumarate (SEROquel) 12.5 mg BID@0900,1300 PO Last administered on 13:20; Start 02/06/17 at 13:00; Stop 02/07/17 at 18:38; Status DC Non-Formulary Medication 1 ea DAILYWBKFT PO Last administered on 02/15/17 08: 00; Start 02/07/17 at 08:00 Quetiapine Fumarate (SEROquel) 12.5 mg DAILY PO Last administered on 02/15/17 08:21; Start 02/08/17 at 09:00 Rivastigmine (Exelon) 1 patch DAILY TD ; Start 02/11/17 at 09:00; Stop 02/11/17 at 09:00; Status DC Rivastigmine (Exelon) 1 patch DAILY TD Last administered on 02/13/17 08:35; Start 02/10/17 at 10:00; Stop 02/13/17 at 19:10; Status DC Rivastigmine (Exelon) 1 patch DAILY TD Last administered on 02/15/17 08:22; Start 02/14/17 at 09:00 Metoprolol Succinate (Toprol Xl) 50 mg DAILY PO Last administered on 02/15/17 16:24; Start 02/15/17 at 14:00 Amlodipine Besylate (Norvasc) 5 mg DAILY PO Last administered on 02/15/17 16: 24; Start 02/15/17 at 14:00 Active Scripts Active Reported Zofran Odt (Ondansetron) 4 Mg Tab.rapdis 4 Mg PO PRN Q4HRS PRN Haloperidol 2 Mg Tablet 0.5 Tab PO PRN TID PRN Glucophage (Metformin Hcl) 500 Mg Tablet 500 Mg PO DAILY Trazodone Hcl 50 Mg Tablet 25 Mg PO HS Pantoprazole Sodium 40 Mg Tablet.dr 40 Mg PO DAILY Benicar (Olmesartan Medoxomil) 40 Mg Tablet 40 Mg PO DAILY Lotemax (Loteprednol Etabonate) 5 Ml Drops.susp 1 Drop EACHEYE DAILY Levothyroxine Sodium 137 Mcg Tablet 137 Mcg PO DAILYAC Cymbalta (Duloxetine Hcl) 60 Mg Capsule.dr 60 Mg PO DAILY Vitamin D3 (Cholecalciferol (Vitamin D3)) 1,000 Unit Tablet 1,000 Unit PO DAILY Bupropion Xl (Bupropion Hcl) 300 Mg Tab.er.24h 300 Mg PO DAILY Diagnosis: Problems: (1) Anxiety disorder (2) Impulse control disorder (3) Dementia, vascular, with depression (4) Dementia, vascular, with delusions (5) Dementia in Alzheimer's disease with depression (6) Dementia in Alzheimer's disease with delusions VALERIA SHEPHERD MD Feb 15, 2017 21:03
[2017-02-16] MEDS: LEVOTHYROXINE 137 MCG TABLET PO SCH (06:05)
[2017-02-16 06:29] VITALS: BP 167/83
[2017-02-16] MEDS: GLUCOPHAGE 500 MG PO SCH (08:00)
[2017-02-16] MEDS: CHOLECALCIFEROL (VITAMIN D3) 1,000 UNIT TABLET PO SCH (08:14)
[2017-02-16] MEDS: METOPROLOL SUCC 24HR ER 50 MG TAB.ER.24H. PO SCH (08:15)
[2017-02-16] MEDS: DULoxetine HCL 60 MG CAPSULE.DR PO SCH (08:15)
[2017-02-16] MEDS: LOSARTAN 50 MG TABLET. PO SCH (08:15)
[2017-02-16] MEDS: PANTOPRAZOLE 40 MG TABLET. PO SCH (08:15)
[2017-02-16] MEDS: RIVASTIGMINE 9.5MG PATCH. TD SCH (08:16)
[2017-02-16] MEDS: QUEtiapine 25 MG TABLET. PO SCH (08:16)
[2017-02-16] MEDS: amLODIPine BESYLATE 5 MG TABLET PO SCH (08:16)
[2017-02-16] MEDS: LOTEPREDNOL ETAB 0.5% OPHTH SUSPENSION 5ML BOTTLE. OU SCH (08:22)
[2017-02-16 16:20] VITALS: BP 146/67
--- NOTE | 2017-02-16 17:01 | PN ---
DATE: 02/14/2017 PSYCHIATRIC PROGRESS NOTE This is a late entry 02/14/2017, covers elements not covered in my initial note of 02/14/2017. SUBJECTIVE: I met with the patient individually. She has been more confused in the evening. UA sent for culture, which may be part of the problem. Previous evening she was delusional, felt she was on a ship and told nursing staff she is nervous about traveling. REVIEW OF SYSTEMS: Ambulation impaired, with walker. No CV, , pulmonary, eye, ENT system symptoms on review. MENTAL STATUS EXAM: Oriented to herself and situation. Speech coherent, abstraction fair, computation impaired, language function intact, attention span short. Mood and affect intermittently labile. She is quite verbal, animated as I met with her. LABORATORY DATA: Reviewed. IMPRESSION: Unchanged from initial note. PLAN: Continue current psychotropics, check UA . Review drug interactions. Risk/benefit ratio favors no further change. VALERIA SHEPHERD MD DR: MARSHALL/silvestre JOB#: [id number] / [id number]
[2017-02-16] MEDS: traZODone 50 MG TABLET. PO SCH (19:47)
--- NOTE | 2017-02-16 21:00 | PDOC ---
Exam Jt Demential Exam: Jt Note: Please also refer to the separate dictated note~for this date of service dictated separately.~Patient seen individually. Discussed the patient with Nursing staff reviewed the chart.~Reviewed interim history and current functioning. Reviewed vital signs,~Labs/ Radiology~and current medications noted below. Continue current treatment with the changes noted in the dictated addendum note Assessment: Vital Signs: Vital Signs Date Time Temp Pulse Resp B/P (MAP) Pulse Ox O2 Delivery O2 Flow Rate FiO2 02/16/17 16:20 97.2 64 18 146/67 (93) 95 02/12/17 17:11 Room Air I&O Intake and Output 02/17/17 06:59 Intake Total 1320 ml Balance 1320 ml Intake Oral 1320 ml Labs: Laboratory Tests Test 02/16/17 07:25 02/16/17 11:36 02/16/17 16:43 02/16/17 18:59 Glucose (Fingerstick) 163 mg/dL (70-99) H 216 mg/dL (70-99) H 182 mg/dL (70-99) H 165 mg/dL (70-99) H Current Medications: Meds: Current Medications Acetaminophen (Tylenol) 650 mg PRN Q6HRS PRN PO PAIN / TEMP; Start 02/04/17 at 18:15 Multi-Ingredient Ointment (Analgesic [place]) 1 camilo PRN QID PRN TP MUSCLE PAIN; Start 02/04/17 at 18:15 Al Hydroxide/Mg Hydroxide (Mylanta Plus Xs) 15 ml PRN AFTMEALHC PRN PO DYSPEPSIA; Start 02/04/17 at 18:15 Magnesium Hydroxide (Milk Of Magnesia) 2,400 mg PRN QHS PRN PO CONSTIPATION; Start 02/04/17 at 18:15 Bupropion HCl (Wellbutrin Xl) 300 mg DAILY PO Last administered on 02/10/17 08 :34; Start 02/05/17 at 09:00; Stop 02/10/17 at 09:56; Status DC Vitamin D (Vitamin D3) 1,000 unit DAILY PO Last administered on 02/16/17 08:14 ; Start 02/05/17 at 09:00 Duloxetine HCl (Cymbalta) 60 mg DAILY PO Last administered on 02/16/17 08:15; Start 02/05/17 at 09:00 Haloperidol (Haldol) 1 mg PRN TID PRN PO ANXIETY / AGITATION Last administered on 02/12/17 15:45; Start 02/04/17 at 18:45 Levothyroxine Sodium (Synthroid) 137 mcg DAILYAC PO ; Start 02/05/17 at 07:30; Stop 02/05/17 at 07:30; Status DC Loteprednol Etabonate (Lotemax) 1 drop DAILY OU Last administered on 02/16/17 08:22; Start 02/05/17 at 09:00 Metformin HCl (Glucophage) 500 mg DAILYWBKFT PO Last administered on 02/06/17 08:28; Start 02/05/17 at 08:00; Stop 02/06/17 at 17:18; Status DC Ondansetron HCl (Zofran Odt) 4 mg PRN Q4HRS PRN PO NAUSEA/VOMITING; Start 02/04 at 18:45 Pantoprazole Sodium (Protonix) 40 mg DAILY PO Last administered on 02/16/17 08 :15; Start 02/05/17 at 09:00 Trazodone HCl (Desyrel) 25 mg HS PO Last administered on 02/16/17 19:47; Start 02/04/17 at 21:00 Losartan Potassium (Cozaar) 100 mg DAILY PO Last administered on 02/16/17 08: 15; Start 02/05/17 at 09:00 Info (FLU VACCINE per PROTOCOL) 1 ea PRN 1X PRN MC PER PROTOCOL; Start at 19:00; Status UNV Pneumococcal Polyvalent Vaccine (Pneumovax 23) 0.5 ml ONCE ONCE VAX IM Last administered on 02/05/17 15:36; Start 02/05/17 at 09:00; Stop 02/05/17 at 09:01 ; Status DC Influenza Virus Vaccine Quadrival (Fluarix Quad [id number] Syringe) 0.5 ml ONCE ONCE VAX IM Last administered on 02/05/17 15:29; Start 02/05/17 at 09:00; Stop 02/05/17 at 09:01; Status DC Levothyroxine Sodium (Synthroid) 137 mcg DAILY07 PO Last administered on 06:05; Start 02/05/17 at 07:00 Quetiapine Fumarate (SEROquel) 12.5 mg BID@0900,1300 PO Last administered on 13:20; Start 02/06/17 at 13:00; Stop 02/07/17 at 18:38; Status DC Non-Formulary Medication 1 ea DAILYWBKFT PO Last administered on 02/16/17 08: 00; Start 02/07/17 at 08:00 Quetiapine Fumarate (SEROquel) 12.5 mg DAILY PO Last administered on 02/16/17 08:16; Start 02/08/17 at 09:00 Rivastigmine (Exelon) 1 patch DAILY TD ; Start 02/11/17 at 09:00; Stop 02/11/17 at 09:00; Status DC Rivastigmine (Exelon) 1 patch DAILY TD Last administered on 02/13/17 08:35; Start 02/10/17 at 10:00; Stop 02/13/17 at 19:10; Status DC Rivastigmine (Exelon) 1 patch DAILY TD Last administered on 02/16/17 08:16; Start 02/14/17 at 09:00 Metoprolol Succinate (Toprol Xl) 50 mg DAILY PO Last administered on 02/16/17 08:15; Start 02/15/17 at 14:00 Amlodipine Besylate (Norvasc) 5 mg DAILY PO Last administered on 02/16/17 08: 16; Start 02/15/17 at 14:00 Active Scripts Active Reported Zofran Odt (Ondansetron) 4 Mg Tab.rapdis 4 Mg PO PRN Q4HRS PRN Haloperidol 2 Mg Tablet 0.5 Tab PO PRN TID PRN Glucophage (Metformin Hcl) 500 Mg Tablet 500 Mg PO DAILY Trazodone Hcl 50 Mg Tablet 25 Mg PO HS Pantoprazole Sodium 40 Mg Tablet.dr 40 Mg PO DAILY Benicar (Olmesartan Medoxomil) 40 Mg Tablet 40 Mg PO DAILY Lotemax (Loteprednol Etabonate) 5 Ml Drops.susp 1 Drop EACHEYE DAILY Levothyroxine Sodium 137 Mcg Tablet 137 Mcg PO DAILYAC Cymbalta (Duloxetine Hcl) 60 Mg Capsule.dr 60 Mg PO DAILY Vitamin D3 (Cholecalciferol (Vitamin D3)) 1,000 Unit Tablet 1,000 Unit PO DAILY Bupropion Xl (Bupropion Hcl) 300 Mg Tab.er.24h 300 Mg PO DAILY Diagnosis: Problems: (1) Anxiety disorder (2) Impulse control disorder (3) Dementia, vascular, with depression (4) Dementia, vascular, with delusions (5) Dementia in Alzheimer's disease with depression (6) Dementia in Alzheimer's disease with delusions VALERIA SHEPHERD MD Feb 16, 2017 20:59
--- NOTE | 2017-02-17 05:36 | PN ---
DATE: 02/15/2017 This late entry 02/15/2017 covers elements not covered in my initial note of 02/15/2017. SUBJECTIVE: I met with the patient evening of 02/15/2017. The patient remains a little forgetful, gets anxious, was pulling on the walker of another patient. UA greater than 100,000 mixed gustabo. REVIEW OF SYSTEMS: Ambulation impaired with a walker. No CV, , pulmonary, eye, ENT system symptoms on review. MENTAL STATUS EXAM: Oriented to herself and situation. Speech is coherent. She is pleasant, verbal, smiling as I met with her. Abstraction fair, computation impaired, language function intact, attention span short. Mood and affect; lability is improved, less anxious. LABORATORIES: Reviewed. IMPRESSION: Unchanged from initial note. PLAN: Continue current psychotropics. Seroquel was reduced, seems adequate for now. Maintain the rest unchanged. Review drug interactions, risk/benefit ratio favors no further change. VALERIA SHEPHERD MD DR: MARSHALL/silvestre JOB#: [id number] / [id number]
[2017-02-17] MEDS: LEVOTHYROXINE 137 MCG TABLET PO SCH (05:46)
[2017-02-17 06:03] VITALS: BP 164/94
[2017-02-17] MEDS: GLUCOPHAGE 500 MG PO SCH (07:45)
[2017-02-17] MEDS: RIVASTIGMINE 9.5MG PATCH. TD SCH (07:46)
[2017-02-17] MEDS: DULoxetine HCL 60 MG CAPSULE.DR PO SCH (07:46)
[2017-02-17] MEDS: amLODIPine BESYLATE 5 MG TABLET PO SCH (07:46)
[2017-02-17] MEDS: QUEtiapine 25 MG TABLET. PO SCH (07:47)
[2017-02-17] MEDS: PANTOPRAZOLE 40 MG TABLET. PO SCH (07:47)
[2017-02-17] MEDS: CHOLECALCIFEROL (VITAMIN D3) 1,000 UNIT TABLET PO SCH (07:47)
[2017-02-17] MEDS: LOSARTAN 50 MG TABLET. PO SCH (07:47)
[2017-02-17] MEDS: METOPROLOL SUCC 24HR ER 50 MG TAB.ER.24H. PO SCH (07:48)
[2017-02-17] MEDS: LOTEPREDNOL ETAB 0.5% OPHTH SUSPENSION 5ML BOTTLE. OU SCH (07:49)
[2017-02-17 16:18] VITALS: BP 152/74
[2017-02-17] MEDS: GLUCOPHAGE PO SCH (16:39)
[2017-02-17] MEDS: traZODone 50 MG TABLET. PO SCH (20:28)
--- NOTE | 2017-02-17 20:52 | PDOC ---
Exam Jt Demential Exam: Jt Note: Please also refer to the separate dictated note~for this date of service dictated separately.~Patient seen individually. Discussed the patient with Nursing staff reviewed the chart.~Reviewed interim history and current functioning. Reviewed vital signs,~Labs/ Radiology~and current medications noted below. Continue current treatment with the changes noted in the dictated addendum note Assessment: Vital Signs: Vital Signs Date Time Temp Pulse Resp B/P (MAP) Pulse Ox O2 Delivery O2 Flow Rate FiO2 02/17/17 16:18 98.4 90 20 152/74 (100) 98 Room Air I&O Intake and Output 02/18/17 07:00 Intake Total 1200 ml Balance 1200 ml Intake Oral 1200 ml Labs: Laboratory Tests Test 02/17/17 07:28 02/17/17 11:38 02/17/17 16:25 02/17/17 18:55 Glucose (Fingerstick) 165 mg/dL (70-99) H 208 mg/dL (70-99) H 145 mg/dL (70-99) H 186 mg/dL (70-99) H Current Medications: Meds: Current Medications Acetaminophen (Tylenol) 650 mg PRN Q6HRS PRN PO PAIN / TEMP; Start 02/04/17 at 18:15 Multi-Ingredient Ointment (Analgesic Anatone) 1 camilo PRN QID PRN TP MUSCLE PAIN; Start 02/04/17 at 18:15 Al Hydroxide/Mg Hydroxide (Mylanta Plus Xs) 15 ml PRN AFTMEALHC PRN PO DYSPEPSIA; Start 02/04/17 at 18:15 Magnesium Hydroxide (Milk Of Magnesia) 2,400 mg PRN QHS PRN PO CONSTIPATION; Start 02/04/17 at 18:15 Bupropion HCl (Wellbutrin Xl) 300 mg DAILY PO Last administered on 02/10/17 08 :34; Start 02/05/17 at 09:00; Stop 02/10/17 at 09:56; Status DC Vitamin D (Vitamin D3) 1,000 unit DAILY PO Last administered on 02/17/17 07:47 ; Start 02/05/17 at 09:00 Duloxetine HCl (Cymbalta) 60 mg DAILY PO Last administered on 02/17/17 07:46; Start 02/05/17 at 09:00 Haloperidol (Haldol) 1 mg PRN TID PRN PO ANXIETY / AGITATION Last administered on 02/12/17 15:45; Start 02/04/17 at 18:45 Levothyroxine Sodium (Synthroid) 137 mcg DAILYAC PO ; Start 02/05/17 at 07:30; Stop 02/05/17 at 07:30; Status DC Loteprednol Etabonate (Lotemax) 1 drop DAILY OU Last administered on 02/17/17 07:49; Start 02/05/17 at 09:00 Metformin HCl (Glucophage) 500 mg DAILYWBKFT PO Last administered on 02/06/17 08:28; Start 02/05/17 at 08:00; Stop 02/06/17 at 17:18; Status DC Ondansetron HCl (Zofran Odt) 4 mg PRN Q4HRS PRN PO NAUSEA/VOMITING; Start 02/04 at 18:45 Pantoprazole Sodium (Protonix) 40 mg DAILY PO Last administered on 02/17/17 07 :47; Start 02/05/17 at 09:00 Trazodone HCl (Desyrel) 25 mg HS PO Last administered on 02/17/17 20:28; Start 02/04/17 at 21:00 Losartan Potassium (Cozaar) 100 mg DAILY PO Last administered on 02/17/17 07: 47; Start 02/05/17 at 09:00 Info (FLU VACCINE per PROTOCOL) 1 ea PRN 1X PRN MC PER PROTOCOL; Start at 19:00; Status UNV Pneumococcal Polyvalent Vaccine (Pneumovax 23) 0.5 ml ONCE ONCE VAX IM Last administered on 02/05/17 15:36; Start 02/05/17 at 09:00; Stop 02/05/17 at 09:01 ; Status DC Influenza Virus Vaccine Quadrival (Fluarix Quad 3059-1142 Syringe) 0.5 ml ONCE ONCE VAX IM Last administered on 02/05/17 15:29; Start 02/05/17 at 09:00; Stop 02/05/17 at 09:01; Status DC Levothyroxine Sodium (Synthroid) 137 mcg DAILY07 PO Last administered on 05:46; Start 02/05/17 at 07:00 Quetiapine Fumarate (SEROquel) 12.5 mg BID@0900,1300 PO Last administered on 13:20; Start 02/06/17 at 13:00; Stop 02/07/17 at 18:38; Status DC Non-Formulary Medication 1 ea DAILYWBKFT PO Last administered on 02/17/17 07: 45; Start 02/07/17 at 08:00; Stop 02/17/17 at 16:09; Status DC Quetiapine Fumarate (SEROquel) 12.5 mg DAILY PO Last administered on 02/17/17 07:47; Start 02/08/17 at 09:00 Rivastigmine (Exelon) 1 patch DAILY TD ; Start 02/11/17 at 09:00; Stop 02/11/17 at 09:00; Status DC Rivastigmine (Exelon) 1 patch DAILY TD Last administered on 02/13/17 08:35; Start 02/10/17 at 10:00; Stop 02/13/17 at 19:10; Status DC Rivastigmine (Exelon) 1 patch DAILY TD Last administered on 02/17/17 07:46; Start 02/14/17 at 09:00 Metoprolol Succinate (Toprol Xl) 50 mg DAILY PO Last administered on 02/17/17 07:48; Start 02/15/17 at 14:00 Amlodipine Besylate (Norvasc) 5 mg DAILY PO Last administered on 02/17/17 07: 46; Start 02/15/17 at 14:00 Non-Formulary Medication 1 ea BIDWMEALS PO Last administered on 02/17/17 16:39 ; Start 02/17/17 at 17:00 Active Scripts Active Reported Zofran Odt (Ondansetron) 4 Mg Tab.rapdis 4 Mg PO PRN Q4HRS PRN Haloperidol 2 Mg Tablet 0.5 Tab PO PRN TID PRN Glucophage (Metformin Hcl) 500 Mg Tablet 500 Mg PO DAILY Trazodone Hcl 50 Mg Tablet 25 Mg PO HS Pantoprazole Sodium 40 Mg Tablet.dr 40 Mg PO DAILY Benicar (Olmesartan Medoxomil) 40 Mg Tablet 40 Mg PO DAILY Lotemax (Loteprednol Etabonate) 5 Ml Drops.susp 1 Drop EACHEYE DAILY Levothyroxine Sodium 137 Mcg Tablet 137 Mcg PO DAILYAC Cymbalta (Duloxetine Hcl) 60 Mg Capsule.dr 60 Mg PO DAILY Vitamin D3 (Cholecalciferol (Vitamin D3)) 1,000 Unit Tablet 1,000 Unit PO DAILY Bupropion Xl (Bupropion Hcl) 300 Mg Tab.er.24h 300 Mg PO DAILY Diagnosis: Problems: (1) Anxiety disorder (2) Impulse control disorder (3) Dementia, vascular, with depression (4) Dementia, vascular, with delusions (5) Dementia in Alzheimer's disease with depression (6) Dementia in Alzheimer's disease with delusions VALERIA SHEPHERD MD Feb 17, 2017 20:52
[2017-02-18] MEDS: LEVOTHYROXINE 137 MCG TABLET PO SCH (05:27)
[2017-02-18 06:22] VITALS: BP 142/67
[2017-02-18] MEDS: GLUCOPHAGE PO SCH ×2 (08:00→17:00)
--- NOTE | 2017-02-18 08:18 | PN ---
DATE: 02/16/2017 This is a late entry of 02/16/2017 covers elements not covered in my initial note of 02/16/2017. I met with the patient in the evening of 02/16/2017. She has been confused, somewhat withdrawn at times, not agitated, at times a little suspicious. UA showed mixed gustabo, compliant with medications. REVIEW OF SYSTEMS: Ambulation impaired. No CV, , pulmonary, eye, ENT system symptoms on review. MENTAL STATUS EXAMINATION: Oriented to herself and situation. Speech coherent, abstraction fair, computation impaired, language function intact, attention span short. Mood and affect still somewhat withdrawn, but less labile. LABORATORY DATA: Reviewed. IMPRESSION: Unchanged from initial note. PLAN: Continue current psychotropics. Reviewed drug interactions. Risk/benefit ratio favors no further. MAN Angelo SHEPHERD MD DR: MARSHALL/silvestre JOB#: [id number] / [id number]
[2017-02-18] MEDS: QUEtiapine 25 MG TABLET. PO SCH (08:20)
[2017-02-18] MEDS: DULoxetine HCL 60 MG CAPSULE.DR PO SCH (08:20)
[2017-02-18] MEDS: RIVASTIGMINE 9.5MG PATCH. TD SCH (08:20)
[2017-02-18] MEDS: CHOLECALCIFEROL (VITAMIN D3) 1,000 UNIT TABLET PO SCH (08:20)
[2017-02-18] MEDS: LOSARTAN 50 MG TABLET. PO SCH (08:21)
[2017-02-18] MEDS: amLODIPine BESYLATE 5 MG TABLET PO SCH (08:21)
[2017-02-18] MEDS: PANTOPRAZOLE 40 MG TABLET. PO SCH (08:21)
[2017-02-18] MEDS: METOPROLOL SUCC 24HR ER 50 MG TAB.ER.24H. PO SCH (08:21)
[2017-02-18] MEDS: LOTEPREDNOL ETAB 0.5% OPHTH SUSPENSION 5ML BOTTLE. OU SCH (08:22)
[2017-02-18 16:32] VITALS: BP 144/82
[2017-02-18] MEDS: traZODone 50 MG TABLET. PO SCH (20:06)
--- NOTE | 2017-02-18 22:23 | PDOC ---
Exam Jt Demential Exam: Jt Note: Please also refer to the separate dictated note~for this date of service dictated separately.~Patient seen individually. Discussed the patient with Nursing staff reviewed the chart.~Reviewed interim history and current functioning. Reviewed vital signs,~Labs/ Radiology~and current medications noted below. Continue current treatment with the changes noted in the dictated addendum note Assessment: Vital Signs: Vital Signs Date Time Temp Pulse Resp B/P (MAP) Pulse Ox O2 Delivery O2 Flow Rate FiO2 02/18/17 16:32 97.9 73 16 144/82 (102) 96 02/17/17 16:18 Room Air I&O Intake and Output 02/19/17 07:00 Intake Total 960 ml Balance 960 ml Intake Oral 960 ml # Bowel Movements 1 Labs: Laboratory Tests Test 02/18/17 07:43 02/18/17 11:15 02/18/17 16:22 02/18/17 19:02 Glucose (Fingerstick) 148 mg/dL (70-99) H 211 mg/dL (70-99) H 154 mg/dL (70-99) H 219 mg/dL (70-99) H Current Medications: Meds: Current Medications Acetaminophen (Tylenol) 650 mg PRN Q6HRS PRN PO PAIN / TEMP; Start 02/04/17 at 18:15 Multi-Ingredient Ointment (Analgesic Orange) 1 camilo PRN QID PRN TP MUSCLE PAIN; Start 02/04/17 at 18:15 Al Hydroxide/Mg Hydroxide (Mylanta Plus Xs) 15 ml PRN AFTMEALHC PRN PO DYSPEPSIA; Start 02/04/17 at 18:15 Magnesium Hydroxide (Milk Of Magnesia) 2,400 mg PRN QHS PRN PO CONSTIPATION; Start 02/04/17 at 18:15 Bupropion HCl (Wellbutrin Xl) 300 mg DAILY PO Last administered on 02/10/17 08 :34; Start 02/05/17 at 09:00; Stop 02/10/17 at 09:56; Status DC Vitamin D (Vitamin D3) 1,000 unit DAILY PO Last administered on 02/18/17 08:20 ; Start 02/05/17 at 09:00 Duloxetine HCl (Cymbalta) 60 mg DAILY PO Last administered on 02/18/17 08:20; Start 02/05/17 at 09:00 Haloperidol (Haldol) 1 mg PRN TID PRN PO ANXIETY / AGITATION Last administered on 02/12/17 15:45; Start 02/04/17 at 18:45 Levothyroxine Sodium (Synthroid) 137 mcg DAILYAC PO ; Start 02/05/17 at 07:30; Stop 02/05/17 at 07:30; Status DC Loteprednol Etabonate (Lotemax) 1 drop DAILY OU Last administered on 02/18/17 08:22; Start 02/05/17 at 09:00 Metformin HCl (Glucophage) 500 mg DAILYWBKFT PO Last administered on 02/06/17 08:28; Start 02/05/17 at 08:00; Stop 02/06/17 at 17:18; Status DC Ondansetron HCl (Zofran Odt) 4 mg PRN Q4HRS PRN PO NAUSEA/VOMITING; Start 02/04 at 18:45 Pantoprazole Sodium (Protonix) 40 mg DAILY PO Last administered on 02/18/17 08 :21; Start 02/05/17 at 09:00 Trazodone HCl (Desyrel) 25 mg HS PO Last administered on 02/18/17 20:06; Start 02/04/17 at 21:00 Losartan Potassium (Cozaar) 100 mg DAILY PO Last administered on 02/18/17 08: 21; Start 02/05/17 at 09:00 Info (FLU VACCINE per PROTOCOL) 1 ea PRN 1X PRN MC PER PROTOCOL; Start at 19:00; Status UNV Pneumococcal Polyvalent Vaccine (Pneumovax 23) 0.5 ml ONCE ONCE VAX IM Last administered on 02/05/17 15:36; Start 02/05/17 at 09:00; Stop 02/05/17 at 09:01 ; Status DC Influenza Virus Vaccine Quadrival (Fluarix Quad [id number] Syringe) 0.5 ml ONCE ONCE VAX IM Last administered on 02/05/17 15:29; Start 02/05/17 at 09:00; Stop 02/05/17 at 09:01; Status DC Levothyroxine Sodium (Synthroid) 137 mcg DAILY07 PO Last administered on 05:27; Start 02/05/17 at 07:00 Quetiapine Fumarate (SEROquel) 12.5 mg BID@0900,1300 PO Last administered on 13:20; Start 02/06/17 at 13:00; Stop 02/07/17 at 18:38; Status DC Non-Formulary Medication 1 ea DAILYWBKFT PO Last administered on 02/17/17 07: 45; Start 02/07/17 at 08:00; Stop 02/17/17 at 16:09; Status DC Quetiapine Fumarate (SEROquel) 12.5 mg DAILY PO Last administered on 02/18/17 08:20; Start 02/08/17 at 09:00 Rivastigmine (Exelon) 1 patch DAILY TD ; Start 02/11/17 at 09:00; Stop 02/11/17 at 09:00; Status DC Rivastigmine (Exelon) 1 patch DAILY TD Last administered on 02/13/17 08:35; Start 02/10/17 at 10:00; Stop 02/13/17 at 19:10; Status DC Rivastigmine (Exelon) 1 patch DAILY TD Last administered on 02/18/17 08:20; Start 02/14/17 at 09:00 Metoprolol Succinate (Toprol Xl) 50 mg DAILY PO Last administered on 02/18/17 08:21; Start 02/15/17 at 14:00 Amlodipine Besylate (Norvasc) 5 mg DAILY PO Last administered on 02/18/17 08: 21; Start 02/15/17 at 14:00 Non-Formulary Medication 1 ea BIDWMEALS PO Last administered on 02/18/17 17:00 ; Start 02/17/17 at 17:00 Active Scripts Active Reported Zofran Odt (Ondansetron) 4 Mg Tab.rapdis 4 Mg PO PRN Q4HRS PRN Haloperidol 2 Mg Tablet 0.5 Tab PO PRN TID PRN Glucophage (Metformin Hcl) 500 Mg Tablet 500 Mg PO DAILY Trazodone Hcl 50 Mg Tablet 25 Mg PO HS Pantoprazole Sodium 40 Mg Tablet.dr 40 Mg PO DAILY Benicar (Olmesartan Medoxomil) 40 Mg Tablet 40 Mg PO DAILY Lotemax (Loteprednol Etabonate) 5 Ml Drops.susp 1 Drop EACHEYE DAILY Levothyroxine Sodium 137 Mcg Tablet 137 Mcg PO DAILYAC Cymbalta (Duloxetine Hcl) 60 Mg Capsule.dr 60 Mg PO DAILY Vitamin D3 (Cholecalciferol (Vitamin D3)) 1,000 Unit Tablet 1,000 Unit PO DAILY Bupropion Xl (Bupropion Hcl) 300 Mg Tab.er.24h 300 Mg PO DAILY Diagnosis: Problems: (1) Anxiety disorder (2) Impulse control disorder (3) Dementia, vascular, with depression (4) Dementia, vascular, with delusions (5) Dementia in Alzheimer's disease with depression (6) Dementia in Alzheimer's disease with delusions VALERIA SHEPHERD MD Feb 18, 2017 22:23
[2017-02-19] MEDS: LEVOTHYROXINE 137 MCG TABLET PO SCH (05:09)
[2017-02-19 06:11] VITALS: BP 153/83
[2017-02-19] MEDS: GLUCOPHAGE PO SCH ×2 (08:00→17:00)
[2017-02-19] MEDS: PANTOPRAZOLE 40 MG TABLET. PO SCH (08:24)
[2017-02-19] MEDS: RIVASTIGMINE 9.5MG PATCH. TD SCH (08:24)
[2017-02-19] MEDS: LOSARTAN 50 MG TABLET. PO SCH (08:25)
[2017-02-19] MEDS: amLODIPine BESYLATE 5 MG TABLET PO SCH (08:25)
[2017-02-19] MEDS: CHOLECALCIFEROL (VITAMIN D3) 1,000 UNIT TABLET PO SCH (08:25)
[2017-02-19] MEDS: METOPROLOL SUCC 24HR ER 50 MG TAB.ER.24H. PO SCH (08:25)
[2017-02-19] MEDS: DULoxetine HCL 60 MG CAPSULE.DR PO SCH (08:25)
[2017-02-19] MEDS: QUEtiapine 25 MG TABLET. PO SCH (08:26)
[2017-02-19] MEDS: LOTEPREDNOL ETAB 0.5% OPHTH SUSPENSION 5ML BOTTLE. OU SCH (08:26)
--- NOTE | 2017-02-19 09:41 | PN ---
DATE: 02/17/2017 This late entry for 02/17/2017, covers elements not covered in my initial note of 02/17/2017. SUBJECTIVE: The patient was staffed at a treatment team meeting with the entire team morning of 02/17/2017. Reviewed her history, progress, current medication. side effects, discharge plans and seen individually in the evening of 02/17/2017. She has been a little more disorganized per nursing staff. At one point, she was putting her eyedrops into her mouth. Social service staff informed me that she has been accepted at [facility]. REVIEW OF SYSTEMS: Ambulation impaired with a walker. No CV, , pulmonary, eye, ENT system symptoms on review. MENTAL STATUS EXAM: Oriented to herself and situation. Speech has some latency, coherent. Abstraction fair, computation impaired, language function intact, attention span short. Mood and affect somewhat anxious, a little more disorganized, but otherwise showing improvement. LABORATORY DATA: Reviewed. IMPRESSION: Unchanged from initial note. PLAN: Continue current psychotropics. Exelon patch, Cymbalta, trazodone, Seroquel 12.5 mg daily. Reviewed drug interactions. Risk/benefit ratio favors no further change at this time. VALERIA SHEPHERD MD DR: MARSHALL/silvestre JOB#: [id number] / [id number]
[2017-02-19 17:16] VITALS: BP 149/92
[2017-02-19] MEDS: traZODone 50 MG TABLET. PO SCH (19:37)
--- NOTE | 2017-02-19 23:08 | PDOC ---
Exam Jt Demential Exam: Jt Note: Please also refer to the separate dictated note~for this date of service dictated separately.~Patient seen individually. Discussed the patient with Nursing staff reviewed the chart.~Reviewed interim history and current functioning. Reviewed vital signs,~Labs/ Radiology~and current medications noted below. Continue current treatment with the changes noted in the dictated addendum note Assessment: Vital Signs: Vital Signs Date Time Temp Pulse Resp B/P (MAP) Pulse Ox O2 Delivery O2 Flow Rate FiO2 02/19/17 17:16 97.8 72 18 149/92 (111) 94 02/17/17 16:18 Room Air I&O Intake and Output 02/20/17 07:00 Intake Total 1200 ml Balance 1200 ml Intake Oral 1200 ml # Bowel Movements 1 Labs: Laboratory Tests Test 02/19/17 07:06 02/19/17 12:01 02/19/17 17:40 02/19/17 19:03 Glucose (Fingerstick) 158 mg/dL (70-99) H 258 mg/dL (70-99) H 146 mg/dL (70-99) H 223 mg/dL (70-99) H Current Medications: Meds: Current Medications Acetaminophen (Tylenol) 650 mg PRN Q6HRS PRN PO PAIN / TEMP; Start 02/04/17 at 18:15 Multi-Ingredient Ointment (Analgesic Alligator) 1 camilo PRN QID PRN TP MUSCLE PAIN; Start 02/04/17 at 18:15 Al Hydroxide/Mg Hydroxide (Mylanta Plus Xs) 15 ml PRN AFTMEALHC PRN PO DYSPEPSIA; Start 02/04/17 at 18:15 Magnesium Hydroxide (Milk Of Magnesia) 2,400 mg PRN QHS PRN PO CONSTIPATION; Start 02/04/17 at 18:15 Bupropion HCl (Wellbutrin Xl) 300 mg DAILY PO Last administered on 02/10/17 08 :34; Start 02/05/17 at 09:00; Stop 02/10/17 at 09:56; Status DC Vitamin D (Vitamin D3) 1,000 unit DAILY PO Last administered on 02/19/17 08:25 ; Start 02/05/17 at 09:00 Duloxetine HCl (Cymbalta) 60 mg DAILY PO Last administered on 02/19/17 08:25; Start 02/05/17 at 09:00 Haloperidol (Haldol) 1 mg PRN TID PRN PO ANXIETY / AGITATION Last administered on 02/12/17 15:45; Start 02/04/17 at 18:45 Levothyroxine Sodium (Synthroid) 137 mcg DAILYAC PO ; Start 02/05/17 at 07:30; Stop 02/05/17 at 07:30; Status DC Loteprednol Etabonate (Lotemax) 1 drop DAILY OU Last administered on 02/19/17 08:26; Start 02/05/17 at 09:00 Metformin HCl (Glucophage) 500 mg DAILYWBKFT PO Last administered on 02/06/17 08:28; Start 02/05/17 at 08:00; Stop 02/06/17 at 17:18; Status DC Ondansetron HCl (Zofran Odt) 4 mg PRN Q4HRS PRN PO NAUSEA/VOMITING; Start 02/04 at 18:45 Pantoprazole Sodium (Protonix) 40 mg DAILY PO Last administered on 02/19/17 08 :24; Start 02/05/17 at 09:00 Trazodone HCl (Desyrel) 25 mg HS PO Last administered on 02/19/17 19:37; Start 02/04/17 at 21:00 Losartan Potassium (Cozaar) 100 mg DAILY PO Last administered on 02/19/17 08: 25; Start 02/05/17 at 09:00 Info (FLU VACCINE per PROTOCOL) 1 ea PRN 1X PRN MC PER PROTOCOL; Start at 19:00; Status UNV Pneumococcal Polyvalent Vaccine (Pneumovax 23) 0.5 ml ONCE ONCE VAX IM Last administered on 02/05/17 15:36; Start 02/05/17 at 09:00; Stop 02/05/17 at 09:01 ; Status DC Influenza Virus Vaccine Quadrival (Fluarix Quad [id number] Syringe) 0.5 ml ONCE ONCE VAX IM Last administered on 02/05/17 15:29; Start 02/05/17 at 09:00; Stop 02/05/17 at 09:01; Status DC Levothyroxine Sodium (Synthroid) 137 mcg DAILY07 PO Last administered on 05:09; Start 02/05/17 at 07:00 Quetiapine Fumarate (SEROquel) 12.5 mg BID@0900,1300 PO Last administered on 13:20; Start 02/06/17 at 13:00; Stop 02/07/17 at 18:38; Status DC Non-Formulary Medication 1 ea DAILYWBKFT PO Last administered on 02/17/17 07: 45; Start 02/07/17 at 08:00; Stop 02/17/17 at 16:09; Status DC Quetiapine Fumarate (SEROquel) 12.5 mg DAILY PO Last administered on 02/19/17 08:26; Start 02/08/17 at 09:00 Rivastigmine (Exelon) 1 patch DAILY TD ; Start 02/11/17 at 09:00; Stop 02/11/17 at 09:00; Status DC Rivastigmine (Exelon) 1 patch DAILY TD Last administered on 02/13/17 08:35; Start 02/10/17 at 10:00; Stop 02/13/17 at 19:10; Status DC Rivastigmine (Exelon) 1 patch DAILY TD Last administered on 02/19/17 08:24; Start 02/14/17 at 09:00 Metoprolol Succinate (Toprol Xl) 50 mg DAILY PO Last administered on 02/19/17 08:25; Start 02/15/17 at 14:00 Amlodipine Besylate (Norvasc) 5 mg DAILY PO Last administered on 02/19/17 08: 25; Start 02/15/17 at 14:00 Non-Formulary Medication 1 ea BIDWMEALS PO Last administered on 02/19/17 17:00 ; Start 02/17/17 at 17:00 Active Scripts Active Reported Zofran Odt (Ondansetron) 4 Mg Tab.rapdis 4 Mg PO PRN Q4HRS PRN Haloperidol 2 Mg Tablet 0.5 Tab PO PRN TID PRN Glucophage (Metformin Hcl) 500 Mg Tablet 500 Mg PO DAILY Trazodone Hcl 50 Mg Tablet 25 Mg PO HS Pantoprazole Sodium 40 Mg Tablet.dr 40 Mg PO DAILY Benicar (Olmesartan Medoxomil) 40 Mg Tablet 40 Mg PO DAILY Lotemax (Loteprednol Etabonate) 5 Ml Drops.susp 1 Drop EACHEYE DAILY Levothyroxine Sodium 137 Mcg Tablet 137 Mcg PO DAILYAC Cymbalta (Duloxetine Hcl) 60 Mg Capsule.dr 60 Mg PO DAILY Vitamin D3 (Cholecalciferol (Vitamin D3)) 1,000 Unit Tablet 1,000 Unit PO DAILY Bupropion Xl (Bupropion Hcl) 300 Mg Tab.er.24h 300 Mg PO DAILY Diagnosis: Problems: (1) Anxiety disorder (2) Impulse control disorder (3) Dementia, vascular, with depression (4) Dementia, vascular, with delusions (5) Dementia in Alzheimer's disease with depression (6) Dementia in Alzheimer's disease with delusions VALERIA SHEPHERD MD Feb 19, 2017 23:08
--- NOTE | 2017-02-20 01:23 | PN ---
DATE: 02/18/2017 This late entry date of service 02/18/2017 covers elements not covered in my initial note of 02/18/2017. SUBJECTIVE: I met with the patient in the evening of 02/18/2017. Per nursing report; the patient is confused, cooperative. Daughter and son-in-law visited, the patient seemed to remember this, discussed it with me as I met with her evening of 02/18/2017. REVIEW OF SYSTEMS: Ambulation impaired with a walker. No CV, , pulmonary, eye system symptoms on review. MENTAL STATUS EXAM: Oriented to herself and situation. Speech has some latency, coherent, pleasant, smiling, abstraction fair, computation impaired, language function intact, attention span short, mood and affect is improved. IMPRESSION: Unchanged from initial note. PLAN: Continue current psychotropics, review drug interactions, risk/benefit ratio favors no further change. MAN Angelo SHEPHERD MD DR: MARSHALL/silvestre JOB#: [id number] / [id number]
[2017-02-20] MEDS: LEVOTHYROXINE 137 MCG TABLET PO SCH (05:54)
[2017-02-20 06:16] VITALS: BP 140/94
[2017-02-20 07:26] LABS: BASO # 0.1 x10^3/uL (0.0-0.2); BASO % 2 % (0-3); EOS # 0.2 x10^3/uL (0.0-0.7); EOS % 4 % (0-3); HEMATOCRIT 31.1 % (36.0-47.0); HEMOGLOBIN 10.5 g/dL (12.0-15.5); LYMPH # 1.1 x10^3/uL (1.0-4.8); LYMPH % 18 % (24-48); MEAN CORPUSCULAR HEMOGLOBIN 31 pg (25-35); MEAN CORPUSCULAR HGB CONC 34 g/dL (31-37); MEAN CORPUSCULAR VOLUME 92 fL (79-100); MONO # 0.4 x10^3/uL (0.0-1.1); MONO % 7 % (0-9); NEUT # 4.2 x10^3uL (1.8-7.7); NEUT % 70 % (31-73); PLATELET COUNT 597 x10^3/uL (140-400); RED BLOOD COUNT 3.36 x10^6/uL (3.50-5.40); RED CELL DISTRIBUTION WIDTH 16.2 % (11.5-14.5)
[2017-02-20 07:43] LABS: ALBUMIN 3.5 g/dL (3.4-5.0); CALCIUM 9.2 mg/dL (8.5-10.1); CREATININE 1.1 mg/dL (0.6-1.0); GFR 47.7; MAGNESIUM 1.9 mg/dL (1.8-2.4); POTASSIUM 4.4 mmol/L (3.5-5.1); TOTAL BILIRUBIN 0.3 mg/dL (0.2-1.0); TOTAL PROTEIN 7.1 g/dL (6.4-8.2)
[2017-02-20] MEDS: GLUCOPHAGE PO SCH ×2 (08:00→17:00)
[2017-02-20] MEDS: QUEtiapine 25 MG TABLET. PO SCH (08:05)
[2017-02-20] MEDS: LOSARTAN 50 MG TABLET. PO SCH (08:05)
[2017-02-20] MEDS: METOPROLOL SUCC 24HR ER 50 MG TAB.ER.24H. PO SCH (08:05)
[2017-02-20] MEDS: CHOLECALCIFEROL (VITAMIN D3) 1,000 UNIT TABLET PO SCH (08:06)
[2017-02-20] MEDS: DULoxetine HCL 60 MG CAPSULE.DR PO SCH (08:06)
[2017-02-20] MEDS: PANTOPRAZOLE 40 MG TABLET. PO SCH (08:06)
[2017-02-20] MEDS: RIVASTIGMINE 9.5MG PATCH. TD SCH (08:06)
[2017-02-20] MEDS: amLODIPine BESYLATE 5 MG TABLET PO SCH (08:06)
[2017-02-20] MEDS: LOTEPREDNOL ETAB 0.5% OPHTH SUSPENSION 5ML BOTTLE. OU SCH (08:07)
[2017-02-20 16:41] VITALS: BP 143/68
[2017-02-20] MEDS ORDERED: ACET325T9 PO (17:31)
[2017-02-20] MEDS ORDERED: MAG30ORA PO (17:40)
[2017-02-20] MEDS ORDERED: MAGN2400 PO (17:42)
[2017-02-20] MEDS ORDERED: METH113. TP (17:43)
[2017-02-20] MEDS ORDERED: METO50TA29 PO (17:45)
[2017-02-20] MEDS ORDERED: QUET25TA5 PO (17:45)
[2017-02-20] MEDS ORDERED: RIVA1PAT23 TP (17:46)
[2017-02-20] MEDS ORDERED: AMLO5TAB4 PO (17:47)
[2017-02-20] MEDS: traZODone 50 MG TABLET. PO SCH (20:21)
--- NOTE | 2017-02-20 21:21 | PDOC ---
Exam Jt Demential Exam: Jt Note: Please also refer to the separate dictated note~for this date of service dictated separately.~Patient seen individually. Discussed the patient with Nursing staff reviewed the chart.~Reviewed interim history and current functioning. Reviewed vital signs,~Labs/ Radiology~and current medications noted below. Continue current treatment with the changes noted in the dictated addendum note Assessment: Vital Signs: Vital Signs Date Time Temp Pulse Resp B/P (MAP) Pulse Ox O2 Delivery O2 Flow Rate FiO2 02/20/17 16:41 97.4 70 18 143/68 (93) 99 02/20/17 06:16 Room Air I&O Intake and Output 02/21/17 07:00 Intake Total 1200 ml Balance 1200 ml Intake Oral 1200 ml Labs: Laboratory Tests Test 02/20/17 06:51 02/20/17 07:20 02/20/17 11:55 02/20/17 16:39 White Blood Count 6.0 x10^3/uL (4.0-11.0) Red Blood Count 3.36 x10^6/uL (3.50-5.40) L Hemoglobin 10.5 g/dL (12.0-15.5) L Hematocrit 31.1 % (36.0-47.0) L Mean Corpuscular Volume 92 fL (79-100) Mean Corpuscular Hemoglobin 31 pg (25-35) Mean Corpuscular Hemoglobin Concent 34 g/dL (31-37) Red Cell Distribution Width 16.2 % (11.5-14.5) H Platelet Count 597 x10^3/uL (140-400) H Neutrophils (%) (Auto) 70 % (31-73) Lymphocytes (%) (Auto) 18 % (24-48) L Monocytes (%) (Auto) 7 % (0-9) Eosinophils (%) (Auto) 4 % (0-3) H Basophils (%) (Auto) 2 % (0-3) Neutrophils # (Auto) 4.2 x10^3uL (1.8-7.7) Lymphocytes # (Auto) 1.1 x10^3/uL (1.0-4.8) Monocytes # (Auto) 0.4 x10^3/uL (0.0-1.1) Eosinophils # (Auto) 0.2 x10^3/uL (0.0-0.7) Basophils # (Auto) 0.1 x10^3/uL (0.0-0.2) Sodium Level 136 mmol/L (136-145) Potassium Level 4.4 mmol/L (3.5-5.1) Chloride Level 101 mmol/L (98-107) Carbon Dioxide Level 30 mmol/L (21-32) Anion Gap 5 (6-14) L Blood Urea Nitrogen 24 mg/dL (7-20) H Creatinine 1.1 mg/dL (0.6-1.0) H Estimated GFR (Cockcroft-Gault) 47.7 BUN/Creatinine Ratio 22 (6-20) H Glucose Level 186 mg/dL (70-99) H Calcium Level 9.2 mg/dL (8.5-10.1) Magnesium Level 1.9 mg/dL (1.8-2.4) Total Bilirubin 0.3 mg/dL (0.2-1.0) Aspartate Amino Transferase (AST) 13 U/L (15-37) L Alanine Aminotransferase (ALT) 24 U/L (14-59) Alkaline Phosphatase 102 U/L (46-116) Total Protein 7.1 g/dL (6.4-8.2) Albumin 3.5 g/dL (3.4-5.0) Albumin/Globulin Ratio 1.0 (1.0-1.7) Glucose (Fingerstick) 166 mg/dL (70-99) H 253 mg/dL (70-99) H 159 mg/dL (70-99) H Test 02/20/17 19:11 Glucose (Fingerstick) 167 mg/dL (70-99) H Current Medications: Meds: Current Medications Acetaminophen (Tylenol) 650 mg PRN Q6HRS PRN PO PAIN / TEMP; Start 02/04/17 at 18:15 Multi-Ingredient Ointment (Analgesic [place]) 1 camilo PRN QID PRN TP MUSCLE PAIN; Start 02/04/17 at 18:15 Al Hydroxide/Mg Hydroxide (Mylanta Plus Xs) 15 ml PRN AFTMEALHC PRN PO DYSPEPSIA; Start 02/04/17 at 18:15 Magnesium Hydroxide (Milk Of Magnesia) 2,400 mg PRN QHS PRN PO CONSTIPATION; Start 02/04/17 at 18:15 Bupropion HCl (Wellbutrin Xl) 300 mg DAILY PO Last administered on 02/10/17 08 :34; Start 02/05/17 at 09:00; Stop 02/10/17 at 09:56; Status DC Vitamin D (Vitamin D3) 1,000 unit DAILY PO Last administered on 02/20/17 08:06 ; Start 02/05/17 at 09:00 Duloxetine HCl (Cymbalta) 60 mg DAILY PO Last administered on 02/20/17 08:06; Start 02/05/17 at 09:00 Haloperidol (Haldol) 1 mg PRN TID PRN PO ANXIETY / AGITATION Last administered on 02/12/17 15:45; Start 02/04/17 at 18:45 Levothyroxine Sodium (Synthroid) 137 mcg DAILYAC PO ; Start 02/05/17 at 07:30; Stop 02/05/17 at 07:30; Status DC Loteprednol Etabonate (Lotemax) 1 drop DAILY OU Last administered on 02/20/17 08:07; Start 02/05/17 at 09:00 Metformin HCl (Glucophage) 500 mg DAILYWBKFT PO Last administered on 02/06/17 08:28; Start 02/05/17 at 08:00; Stop 02/06/17 at 17:18; Status DC Ondansetron HCl (Zofran Odt) 4 mg PRN Q4HRS PRN PO NAUSEA/VOMITING; Start 02/04 at 18:45 Pantoprazole Sodium (Protonix) 40 mg DAILY PO Last administered on 02/20/17 08 :06; Start 02/05/17 at 09:00 Trazodone HCl (Desyrel) 25 mg HS PO Last administered on 02/20/17 20:21; Start 02/04/17 at 21:00 Losartan Potassium (Cozaar) 100 mg DAILY PO Last administered on 02/20/17 08: 05; Start 02/05/17 at 09:00 Info (FLU VACCINE per PROTOCOL) 1 ea PRN 1X PRN MC PER PROTOCOL; Start at 19:00; Status UNV Pneumococcal Polyvalent Vaccine (Pneumovax 23) 0.5 ml ONCE ONCE VAX IM Last administered on 02/05/17 15:36; Start 02/05/17 at 09:00; Stop 02/05/17 at 09:01 ; Status DC Influenza Virus Vaccine Quadrival (Fluarix Quad [id number] Syringe) 0.5 ml ONCE ONCE VAX IM Last administered on 02/05/17 15:29; Start 02/05/17 at 09:00; Stop 02/05/17 at 09:01; Status DC Levothyroxine Sodium (Synthroid) 137 mcg DAILY07 PO Last administered on 05:54; Start 02/05/17 at 07:00 Quetiapine Fumarate (SEROquel) 12.5 mg BID@0900,1300 PO Last administered on 13:20; Start 02/06/17 at 13:00; Stop 02/07/17 at 18:38; Status DC Non-Formulary Medication 1 ea DAILYWBKFT PO Last administered on 02/17/17 07: 45; Start 02/07/17 at 08:00; Stop 02/17/17 at 16:09; Status DC Quetiapine Fumarate (SEROquel) 12.5 mg DAILY PO Last administered on 02/20/17 08:05; Start 02/08/17 at 09:00; Stop 02/20/17 at 18:30; Status DC Rivastigmine (Exelon) 1 patch DAILY TD ; Start 02/11/17 at 09:00; Stop 02/11/17 at 09:00; Status DC Rivastigmine (Exelon) 1 patch DAILY TD Last administered on 02/13/17 08:35; Start 02/10/17 at 10:00; Stop 02/13/17 at 19:10; Status DC Rivastigmine (Exelon) 1 patch DAILY TD Last administered on 02/20/17 08:06; Start 02/14/17 at 09:00 Metoprolol Succinate (Toprol Xl) 50 mg DAILY PO Last administered on 02/20/17 08:05; Start 02/15/17 at 14:00 Amlodipine Besylate (Norvasc) 5 mg DAILY PO Last administered on 02/20/17 08: 06; Start 02/15/17 at 14:00 Non-Formulary Medication 1 ea BIDWMEALS PO Last administered on 02/20/17 17:00 ; Start 02/17/17 at 17:00 Quetiapine Fumarate (SEROquel) 12.5 mg BID92 PO ; Start 02/21/17 at 09:00 Active Scripts Active Reported Norvasc (Amlodipine Besylate) 5 Mg Tablet 1 Tab PO DAILY EXELON 9.5mg/24hr (Rivastigmine) 1 Each Patch.td24 1 Patch TP DAILY Seroquel (Quetiapine Fumarate) 25 Mg Tablet 1 Tab PO QHS Metoprolol Succinate ( Xl ) (Metoprolol Succinate) 50 Mg Tab.er.24h 1 Tab PO DAILY Pain-Relief Cream (Methyl Salicylate/Menth/Camph) 113.3 Gm Cream..g. 113.3 Gm TP Milk Of Magnesia (Magnesium Hydroxide) 2,400 Mg/10 Ml Oral.susp 2,400 Mg PO Mag-Al Plus Suspension (Mag Hydrox/Al Hydrox/Simeth) 30 Ml Oral.susp 30 Ml PO Tylenol (Acetaminophen) 325 Mg Tablet 325 Mg PO Zofran Odt (Ondansetron) 4 Mg Tab.rapdis 4 Mg PO PRN Q4HRS PRN Haloperidol 2 Mg Tablet 0.5 Tab PO PRN TID PRN Glucophage (Metformin Hcl) 500 Mg Tablet 500 Mg PO DAILY Trazodone Hcl 50 Mg Tablet 25 Mg PO HS Pantoprazole Sodium 40 Mg Tablet.dr 40 Mg PO DAILY Benicar (Olmesartan Medoxomil) 40 Mg Tablet 40 Mg PO DAILY Lotemax (Loteprednol Etabonate) 5 Ml Drops.susp 1 Drop EACHEYE DAILY Levothyroxine Sodium 137 Mcg Tablet 137 Mcg PO DAILYAC Cymbalta (Duloxetine Hcl) 60 Mg Capsule.dr 60 Mg PO DAILY Vitamin D3 (Cholecalciferol (Vitamin D3)) 1,000 Unit Tablet 1,000 Unit PO DAILY Bupropion Xl (Bupropion Hcl) 300 Mg Tab.er.24h 300 Mg PO DAILY Diagnosis: Problems: (1) Anxiety disorder (2) Impulse control disorder (3) Dementia, vascular, with depression (4) Dementia, vascular, with delusions (5) Dementia in Alzheimer's disease with depression (6) Dementia in Alzheimer's disease with delusions VALERIA SHEPHERD MD Feb 20, 2017 21:21
[2017-02-21] MEDS: LEVOTHYROXINE 137 MCG TABLET PO SCH (05:42)
[2017-02-21 06:01] VITALS: BP 142/66
[2017-02-21] MEDS: GLUCOPHAGE PO SCH (08:01)
[2017-02-21] MEDS: LOTEPREDNOL ETAB 0.5% OPHTH SUSPENSION 5ML BOTTLE. OU SCH (08:03)
[2017-02-21] MEDS: LOSARTAN 50 MG TABLET. PO SCH (08:04)
[2017-02-21] MEDS: DULoxetine HCL 60 MG CAPSULE.DR PO SCH (08:04)
[2017-02-21] MEDS: amLODIPine BESYLATE 5 MG TABLET PO SCH (08:05)
[2017-02-21] MEDS: PANTOPRAZOLE 40 MG TABLET. PO SCH (08:06)
[2017-02-21] MEDS: QUEtiapine 25 MG TABLET. PO SCH ×2 (08:08→14:11)
[2017-02-21 08:09] VITALS: BP 142/66
[2017-02-21] MEDS: METOPROLOL SUCC 24HR ER 50 MG TAB.ER.24H. PO SCH (08:09)
[2017-02-21] MEDS: RIVASTIGMINE 9.5MG PATCH. TD SCH (08:10)
[2017-02-21] MEDS: CHOLECALCIFEROL (VITAMIN D3) 1,000 UNIT TABLET PO SCH (08:10)
--- NOTE | 2017-02-21 13:56 | PN ---
DATE: 02/19/2017 PSYCHIATRIC PROGRESS NOTE This late entry 02/19/2017, covers elements not covered in my initial note of 02/19/2017. I met with the patient in the evening of 02/19/2017. Overall, per nursing report, the patient has been calm, compliant, disorganized, pleasantly confused. REVIEW OF SYSTEMS: Ambulation impaired with walker. No CV, , pulmonary, eye, ENT system symptoms on review. Pleasant, verbal. Insight, judgment, recent memory is impaired. Language function intact, attention span short, mood and affect is improved. LABORATORY DATA: Reviewed. IMPRESSION: Unchanged from initial note. PLAN: Continue current psychotropics, reviewed drug interactions, risk/benefit ratio favors no further change. MAN Angelo SHEPHERD MD DR: MARSHALL/silvestre JOB#: [id number] / [id number]
--- NOTE | 2017-02-22 01:21 | PN ---
DATE: 02/20/2017 This late entry 02/20/2017 covers elements not covered in my initial note of 02/20/2017. I met with the patient evening of 02/20/2017. Per nursing report, she has been somewhat anxious, needy, requesting nursing staff to help her, even though when they arrived, she has nothing specific she needs help for. Has some mood lability, but overall improved. REVIEW OF SYSTEMS: Ambulation impaired with a walker. No CV, , pulmonary, eye, ENT system symptoms on review. MENTAL STATUS EXAM: Oriented to herself and situation. Speech coherent, pleasant, verbal, smiling as I met with her. Abstraction fair, computation impaired, language function intact, attention span short. Mood and affect, lability is improved. LABORATORY DATA: Reviewed. IMPRESSION: Unchanged from initial note. PLAN: Continue Seroquel 12.5 mg in the morning, start 12.5 mg at 2 p.m. to help with the mood lability. Maintain Exelon patch 9.5 mg a day, Cymbalta 60 mg a day, trazodone 12.5 mg at bedtime. Reviewed drug interactions, risk/benefit ratio favors no further change. VALERIA SHEPHERD MD DR: MARSHALL/silvestre JOB#: [id number] / [id number]
--- NOTE | 2017-02-22 12:55 | DS ---
DATE OF DISCHARGE: 02/21/2017 This is a late entry for 02/21/2017 and covers elements not covered in my initial note of 02/21/2017. REASON FOR ADMISSION: Please refer to the admission history for details. Briefly, the patient is an 81-year-old female, referred to us from [facility] on account of worsening confusion, being extremely paranoid, psychotic, refusing her medications and cares and having failed outpatient psychiatric interventions. Details are noted in my initial assessment. SIGNIFICANT FINDINGS AND CLINICAL COURSE: Following admission, the patient was seen daily individually by myself, followed medically per Dr. Alexis/Dr. Nava. She was quite paranoid, confused, forgetful initially. Adjustments were made in her psychotropics and she seemed to respond to a combination of Cymbalta 60 mg a day, Exelon patch 9.5 mg daily, trazodone 12.5 mg at bedtime, Seroquel 12.5 mg at 9:00 a.m. and 2 p.m. as a mood stabilizer. Mood appeared to stabilize. She was not agitated, aggressive. Paranoia was much improved. CONDITION AT DISCHARGE: Improved. REVIEW OF SYSTEMS: Prior to discharge, 02/21/2017, ambulation impaired with a walker. No CV, , pulmonary, eye, ENT system symptoms on review. MENTAL STATUS EXAM: Oriented to herself and situation. Speech has some latency, coherent. Abstraction fair, computation impaired, language function intact, attention span short. Mood and affect was improved. CONDITION ON DISCHARGE: Improved. FINAL DIAGNOSES: Major neurocognitive disorder, Alzheimer, vascular with delusion, depression, behavioral disturbance; anxiety disorder, unspecified; impulse control disorder, unspecified. Rest unchanged from admission. DISCHARGE MEDICATIONS: Please refer to the MRAD. DISCHARGE INSTRUCTIONS: Outpatient psychiatric and medical followup at the nursing facility. Time for discharge day management is greater than 30 minutes. VALERIA SHEPHERD MD DR: MARSHALL/silvestre JOB#: [id number] / [id number]
== END 2017-02-21 14:36 | DRG 884 ==
LOC: GEROPSY 17:04
PROVIDERS: ADMIT Psychiatry & Neurology Psychiatry; ATTEND Psychiatry & Neurology Psychiatry
DX: F01.51 Vascular dementia, unspecified severity, with behavioral disturbance (principal); G30.9 Alzheimer's disease, unspecified; N39.0 Urinary tract infection, site not specified; F02.81 Dementia in other diseases classified elsewhere, unspecified severity, with behavioral disturbance; E87.1 Hypo-osmolality and hyponatremia; E11.9 Type 2 diabetes mellitus without complications; E03.9 Hypothyroidism, unspecified; E78.00 Pure hypercholesterolemia, unspecified; L40.9 Psoriasis, unspecified; F32.9 Major depressive disorder, single episode, unspecified; F41.9 Anxiety disorder, unspecified; F63.9 Impulse disorder, unspecified; I10 Essential (primary) hypertension; K21.9 Gastro-esophageal reflux disease without esophagitis; Z85.3 Personal history of malignant neoplasm of breast; Z85.51 Personal history of malignant neoplasm of bladder; Z87.891 Personal history of nicotine dependence; Z88.5 Allergy status to narcotic agent; Z88.0 Allergy status to penicillin; Z88.8 Allergy status to other drugs, medicaments and biological substances
CPT/HCPCS: 36415; 70450; 71010; 80053; 80061; 81001; 82306; 82607; 82947; 83036; 83540; 83550; 83735; 83880; 84436; 84443; 84480; 85025; 86592; 86593; 87086; 90686; 90732; 93005; 97110; 97530; 97535